=== PATIENT | female | born 1940 | race Caucasian/White ===

== ENCOUNTER 2018-09-03 10:47 | Emergency (ER) | payer MEDICARE ==
[2018-09-03] MEDS ORDERED: NS 0.9% 1000 ML** 1,000 ML IV ONE (11:18)
--- NOTE | 2018-09-03 11:30 | ED ---
Altered Mental Status - HPI Summary HPI Summary: Patient is a 77 y/o female with significant cancer hx including left breast and cervical cancer, presenting with worsening confusion for months. She experienced a fall this morning when attempting to sit on the commode and was brought in to the ED via EMS. Per , patient falls 3-4 times per week, which suddenly started 4 weeks ago. Patient has an MRI scheduled for 09/07/2018 to r/o tumor ordered by her PCP. She denies headache, dizziness, injury from fall, chest pain, shortness of breath, abdominal pain, nausea, vomiting, diarrhea, weakness and numbness of extremities. She denies feeling confused but her confirms she has been altered. She is accompanied by her and daughter who provide the majority of the history. They deny starting new medications in the last month. She has fentanyl patches prescribed by pain management for spinal stenosis and b/l chronic knee pain. Per , they change the fentanyl patches q 3 days as prescribed. Denies tobacco, alcohol, and drug use. - History Of Current Complaint Chief Complaint: EDAltMentalStatus Stated Complaint: AMS Time Seen by Provider: 09/03/18 10:56 Hx Obtained From: Patient, Family/Rehabilitation Counsellor - and daughter Hx From Patient Unobtainable Due To: Altered Mental Status Onset/Duration: Gradually Timing: Constant Severity Initially: Mild Severity Currently: Mild Character: Confusion Aggravating Factor(s): Nothing Alleviating Factor(s): Nothing Associated Signs And Symptoms: Negative: Dizziness, Seizure, Nausea, Vomiting, Fever, Headache, Weakness - Allergies/Home Medications Allergies/Adverse Reactions: Allergies Allergy/AdvReac Type Severity Reaction Status Date / Time buprenorphine [From Butrans] Allergy Hives Verified 08/25/18 13:23 latex Allergy Hives Verified 08/25/18 13:23 hydrocodone AdvReac Itching Verified 08/25/18 13:23 oxycodone AdvReac Hives Verified 08/25/18 13:23 tramadol AdvReac Headache Verified 08/25/18 13:23 NUTS Allergy ANAPHILAXIS Uncoded 08/25/18 13:23 Home Medications: Home Medications Anastrozole (NF) [Arimidex (NF)] 1 mg PO DAILY 09/03/18 [History Confirmed 09/03] Betamethasone Dipropionate [Betamethasone Dipropionat] 0.05 % TOPICAL TID PRN [History Confirmed 09/03/18] Cholecalciferol (Vitamin D3) [Vitamin D3] 2,000 unit PO DAILY 09/03/18 [History Confirmed 09/03/18] Esomeprazole(NF) [NexIUM(NF)] 40 mg PO DAILY 09/03/18 [History Confirmed ] Ibuprofen TAB* [Motrin TAB* 800 MG] 800 mg PO TID WITH MEALS PRN 09/03/18 [ History Confirmed 09/03/18] LevoCETirizine TAB (NF) [Xyzal TAB (NF)] 5 mg PO DAILY 09/03/18 [History Confirmed 09/03/18] Nystatin CREAM* [Nystatin Cream*] 1 applic TOPICAL TID PRN 09/03/18 [History Confirmed 09/03/18] Venlafaxine ER (NF) [Effexor ER (NF)] 150 mg PO DAILY 09/03/18 [History Confirmed 09/03/18] Venlafaxine EXT RELEASE CAP* [Effexor Xr CAP*] 75 mg PO DAILY 09/03/18 [History Confirmed 09/03/18] PMH/Surg Hx/FS Hx/Imm Hx Previously Healthy: No Endocrine/Hematology History: Denies: Hx Diabetes Cardiovascular History: Denies: Hx Hypertension, Hx Pacemaker/ICD, Other Cardiovascular Problems/ Disorders Respiratory History: Reports: Hx Asthma - ONLY WHEN SEASONAL BRONCHITIS, Hx Seasonal Allergies Denies: Other Respiratory Problems/Disorders GI History: Denies: Other GI Disorders History: Denies: Hx Dialysis, Hx Renal Disease Musculoskeletal History: Reports: Hx Arthritis - KNEES, BACK, Hx Back Problems - Spinal stenosis Denies: Hx Osteoporosis Sensory History: Reports: Hx Cataracts - FRED, Hx Contacts or Glasses - GLASSES Denies: Hx Hearing Aid Opthamlomology History: Reports: Hx Cataracts - FRED, Hx Contacts or Glasses - GLASSES Neurological History: Reports: Hx Migraine - Q 2 MONTHS Denies: Other Neuro Impairments/Disorders Psychiatric History: Reports: Hx Anxiety - ON MEDS, Hx Depression - ON MEDS Denies: Hx Panic Disorder - Cancer History Cancer Type, Location and Year: EYELID, LT BREAST, CERVIX Hx Chemotherapy: No Hx Radiation Therapy: Yes - THERAPY OVER - Surgical History Surgical History: Yes Surgery Procedure, Year, and Place: CATARACTS,BOTH,2005-LEFT HAND SURGERY. SHOULDER LEFT. CANCER LEFT EYELID, NO TEAR DUCT NOW. 12/19/14 LEFT BREAST CANCER TUMOR REMOVED. TUBAL LIGATION Hx Anesthesia Reactions: No Infectious Disease History: No Infectious Disease History: Denies: Hx Clostridium Difficile, Hx Hepatitis, Hx Human Immunodeficiency Virus (HIV), Hx of Known/Suspected MRSA, Hx Shingles, Hx Tuberculosis, Hx Known/ Suspected VRE, Hx Known/Suspected VRSA, History Other Infectious Disease, Traveled Outside the [place] in Last 30 Days - Family History Known Family History: Positive: None, Non-Contributory - Social History Occupation: Retired Lives: With Family Alcohol Use: None Alcohol Amount: HOLIDAYS Hx Substance Use: No Substance Use Type: Reports: None Hx Tobacco Use: Yes Smoking Status (MU): Former Smoker Type: Cigarettes Amount Used/How Often: PACK A DAY Have You Smoked in the Last Year: No Review of Systems Negative: Fever, Chills Negative: Blurred Vision Negative: Chest Pain Negative: Shortness Of Breath Negative: Abdominal Pain, Vomiting, Diarrhea, Nausea Negative: dysuria Neurological: Other - Fall. Altered mental status. Negative: Headache, Weakness, Numbness, Syncope All Other Systems Reviewed And Are Negative: Yes Physical Exam Triage Information Reviewed: Yes Vital Signs On Initial Exam: Initial Vitals Temp Pulse Resp BP Pulse Ox 98.2 F 100 15 149/99 94 09/03/18 10:53 09/03/18 10:53 09/03/18 10:53 09/03/18 10:53 09/03/18 10:53 Vital Signs Reviewed: Yes Appearance: Positive: Well-Appearing, No Pain Distress Skin: Positive: Warm, Skin Color Reflects Adequate Perfusion, Dry, Other - Well- demarcated erythematous rash to b/l groin lying beneath pannis, c/w fungal infection. Head/Face: Positive: Normal Head/Face Inspection, Other - No crepitus, no bony stepoffs.. Negative: Cephalohematoma Eyes: Positive: Normal, EOMI, Conjunctiva Clear Neck: Positive: Supple, Nontender Respiratory/Lung Sounds: Positive: Clear to Auscultation, Breath Sounds Present. Negative: Rales, Rhonchi, Wheezes Cardiovascular: Positive: RRR. Negative: Murmur, Rub Abdomen Description: Positive: Nontender, Soft. Negative: Distended Bowel Sounds: Positive: Present Musculoskeletal: Positive: Normal, Strength/ROM Intact, Other - Discrete 3 cm x 3 cm area of swelling to right biceps. No erythema, ecchymosis. No tenderness to palpation. ROM intact. Neurological: Positive: Normal, Sensory/Motor Intact, NV Bundle Intact Distally , Disoriented - Oriented to person. Not oriented to place or time., Facial Symmetry, Speech Normal. Negative: Focal Deficit @ Psychiatric: Positive: Normal Diagnostics - Vital Signs Vital Signs Temp Pulse Resp BP Pulse Ox 09/03/18 11:00 95 21 95 09/03/18 10:57 88 20 149/99 95 09/03/18 10:56 89 14 95 09/03/18 10:53 98.2 F 100 15 149/99 94 - Laboratory Lab Results: Laboratory Results - last 24 hr 09/03/18 09/03/18 09/03/18 11:41 11:41 11:41 WBC 8.2 RBC 4.34 Hgb 13.8 Hct 40 MCV 93 MCH 32 H MCHC 34 RDW 15 Plt Count 211 MPV 9.5 Neut % (Auto) 78.7 Lymph % (Auto) 10.0 [place] % (Auto) 9.3 Eos % (Auto) 1.2 Baso % (Auto) 0.8 Absolute Neuts (auto) 6.5 Absolute Lymphs (auto) 0.8 L Absolute Monos (auto) 0.8 Absolute Eos (auto) 0.1 Absolute Basos (auto) 0.1 Absolute Nucleated RBC 0.0 Nucleated RBC % 0.0 Sodium 139 Potassium 3.7 Chloride 105 Carbon Dioxide 22 Anion Gap 12 H BUN 20 Creatinine 0.79 Est GFR ( Amer) 85.2 Est GFR (Non-Af Amer) 70.4 BUN/Creatinine Ratio 25.3 H Glucose 112 H Lactic Acid 1.4 Calcium 9.2 Total Bilirubin 0.60 AST 12 L ALT 10 Alkaline Phosphatase 138 H Troponin I 0.00 Total Protein 7.0 Albumin 3.8 Globulin 3.2 Albumin/Globulin Ratio 1.2 Result Diagrams: 09/03/18 11:41 09/03/18 11:41 Lab Statement: Any lab studies that have been ordered have been reviewed, and results considered in the medical decision making process. - CT CT brain CT Interpretation Completed By: Radiologist Summary of CT Findings: No acute intracranial pathology - EKG Time 10:56 Cardiac Rate: NL - Rate 98 EKG Rhythm: Sinus Rhythm ST Segment: Normal Ectopy: None Summary of EKG Findings: Normal axis. Altered Mental Statu Course/Dx - Course Course Of Treatment: 77 y/o female with gradual onset AMS and falls recently. CT brain negative for acute intracranial pathology. Blood work WNL and U/A without signs of infection. Discussed at-home safety with patient and , both agree patient should be discharged to home and will have appropriate care. Pt discharged to home to f/u with MRI as scheduled on 09/07/18 and see PCP within 1 week. Recommend pursuing medication regimen as culprit of recent falls. - Diagnoses Differential Diagnosis/HQI/PQRI: Intracranial Bleed, Medication Reaction Provider Diagnoses: Altered mental status, unspecified Discharge - Sign-Out/Discharge Documenting (check all that apply): Patient Departure Patient Received Moderate/Deep Sedation with Procedure: No - Discharge Plan Condition: Improved Disposition: HOME Referrals: Jenni Singleton MD [Primary Care Provider] - - Billing Disposition and Condition Condition: IMPROVED Disposition: Home - Attestation Statements Document Initiated by Jigneshibnolan: Yes Documenting Scribe: MINNIE Diaz Provider For Whom Jigneshibnolan is Documenting (Include Credential): Dr. Waylon Eganibnolan Attestation: Robe, MINNIE Diaz, scribed for Dr. Connors on 09/03/18 at 1418. Status of Scribe Document: Viewed
[2018-09-03 11:53] LABS: ABS Basophils 0.1 10^3/ul (0-0.2); ABS Eosinophils 0.1 10^3/ul (0-0.6); ABS Lymphocytes 0.8 10^3/ul (1.0-4.8); ABS Monocytes 0.8 10^3/ul (0-0.8); ABS Neutrophils 6.5 10^3/ul (1.5-7.7); Eosinophil % 1.2 %; Hematocrit 40 % (35-47); Hemoglobin 13.8 g/dL (12.0-16.0); Mean Corpuscular HGB Conc 34 g/dL (31-36); Mean Corpuscular Hemoglobin 32 pg (27-31); Mean Corpuscular Volume 93 fL (80-97); Mean Platelet Volume 9.5 fL (7.4-10.4); Platelet Count 211 10^3/uL (150-450); Red Blood Count 4.34 10^6 /uL (3.70-4.87); Red Cell Distribution Width 15 % (10-15); White Blood Count 8.2 10^3/uL (3.5-10.8)
[2018-09-03 12:09] LABS: Albumin 3.8 g/dL (3.2-5.2); Albumin/Globulin Ratio 1.2 (1-3); BUN/Creatinine Ratio 25.3 (8-20); Calcium 9.2 mg/dL (8.6-10.3); EGFR African American 85.2 (>60); EGFR Non-African American 70.4 (>60); Globulin 3.2 g/dL (2-4); Potassium 3.7 mmol/L (3.5-5.0); Total Bilirubin 0.6 mg/dL (0.2-1.0)
[2018-09-03 14:00] LABS: Urine Appearance Clear; Urine Bacteria Absent (Absent); Urine Bilirubin Negative (Negative); Urine Blood Negative (Negative); Urine Color Yellow; Urine Glucose Negative (Negative); Urine Ketones 1+ (Negative); Urine Nitrite Negative (Negative); Urine Protein 1+(30 mg/dL) (Negative); Urine Red Blood Cell Trace(0-2/hpf) (Absent); Urine Specific Gravity 1.019 (1.010-1.030); Urine Squamous Epithelial Cell Present (Absent); Urine Urobilinogen Negative (Negative); Urine White Blood Cell Trace(0-5/hpf) (Absent)
[2018-09-03 14:40] VITALS: BP 159/77
== END 2018-09-03 14:39 | disposition home or self-care (01) ==
LOC: ED 10:47
DX: R41.82 Altered mental status, unspecified (principal); Z87.891 Personal history of nicotine dependence; Z79.899 Other long term (current) drug therapy
CPT/HCPCS: 36415; 70450; 80053; 81003; 81015; 83605; 84484; 85025; 87086; 93005; 96360; 96361; 99284

== ENCOUNTER 2018-10-02 08:18 | Observation (INO) | payer MEDICARE ==
--- NOTE | 2018-10-02 08:51 | ED ---
Upper Extremity Pain - HPI Summary HPI Summary: Pt is a 77 y/o F presenting to the ED brought in by EMS for L hand weakness. She states she woke up around 0630 with some L hand numbness, and was concerned that she may have been having a stroke. Per the pts family, she has been confused over the last couple of months with her changes in medication, and has not been speaking correctly. They are concerned about the medications she is on. - History of Current Complaint Chief Complaint: EDNeurologicalDeficit Stated Complaint: POSSIBLE STROKE PER EMS Time Seen by Provider: 10/02/18 08:29 Hx Obtained From: Patient, Family/Teacher Aide Mechanism Of Injury: Unknown Onset/Duration: Started Hours Ago, Still Present Timing: Constant, Lasting Hours Severity Initially: Mild Severity Currently: Mild Pain Location: Hand - L Aggravating Factor(s): Nothing Alleviating Factor(s): Nothing Associated Signs & Symptoms: Positive: Numbness/Tingling - Allergies/Home Medications Allergies/Adverse Reactions: Allergies Allergy/AdvReac Type Severity Reaction Status Date / Time nut - unspecified Allergy Severe Anaphylatic Verified 10/02/18 16:13 Shock buprenorphine [From Butrans] Allergy Hives Verified 10/02/18 08:26 latex Allergy Hives Verified 10/02/18 08:26 hydrocodone AdvReac Itching Verified 10/02/18 08:26 oxycodone AdvReac Hives Verified 10/02/18 08:26 tramadol AdvReac Headache Verified 10/02/18 08:26 NUTS Allergy ANAPHILAXIS Uncoded 10/02/18 08:26 Home Medications: Home Medications Solifenacin(NF) [Vesicare(NF)] 10 mg PO DAILY 10/02/18 [History Confirmed ] PMH/Surg Hx/FS Hx/Imm Hx Previously Healthy: Yes Endocrine/Hematology History: Denies: Hx Diabetes Cardiovascular History: Denies: Hx Hypertension, Hx Pacemaker/ICD, Other Cardiovascular Problems/ Disorders Respiratory History: Reports: Hx Asthma - ONLY WHEN SEASONAL BRONCHITIS, Hx Seasonal Allergies Denies: Other Respiratory Problems/Disorders GI History: Denies: Other GI Disorders History: Denies: Hx Dialysis, Hx Renal Disease Musculoskeletal History: Reports: Hx Arthritis - KNEES, BACK, Hx Back Problems - Spinal stenosis Denies: Hx Osteoporosis Sensory History: Reports: Hx Cataracts - FRED, Hx Contacts or Glasses - GLASSES Denies: Hx Hearing Aid Opthamlomology History: Reports: Hx Cataracts - FRED, Hx Contacts or Glasses - GLASSES Neurological History: Reports: Hx Migraine - Q 2 MONTHS Denies: Other Neuro Impairments/Disorders Psychiatric History: Reports: Hx Anxiety - ON MEDS, Hx Depression - ON MEDS Denies: Hx Panic Disorder - Cancer History Cancer Type, Location and Year: EYELID, LT BREAST, CERVIX Hx Chemotherapy: No Hx Radiation Therapy: Yes - THERAPY OVER - Surgical History Surgery Procedure, Year, and Place: CATARACTS,BOTH,2005-LEFT HAND SURGERY. SHOULDER LEFT. CANCER LEFT EYELID, NO TEAR DUCT NOW. 12/19/14 LEFT BREAST CANCER TUMOR REMOVED. TUBAL LIGATION Hx Anesthesia Reactions: No Infectious Disease History: No Infectious Disease History: Denies: Hx Clostridium Difficile, Hx Hepatitis, Hx Human Immunodeficiency Virus (HIV), Hx of Known/Suspected MRSA, Hx Shingles, Hx Tuberculosis, Hx Known/ Suspected VRE, Hx Known/Suspected VRSA, History Other Infectious Disease, Traveled Outside the [place] in Last 30 Days - Family History Known Family History: Negative: Cardiac Disease - Social History Alcohol Use: None Alcohol Amount: HOLIDAYS Hx Substance Use: No Substance Use Type: Reports: None Hx Tobacco Use: Yes Smoking Status (MU): Former Smoker Type: Cigarettes Amount Used/How Often: PACK A DAY Have You Smoked in the Last Year: No Review of Systems Positive: Other - confusion Positive: Numbness, Slurred Speech All Other Systems Reviewed And Are Negative: Yes Physical Exam - Summary Physical Exam Summary: Appearance: The patient is well-nourished in no acute distress and in no acute pain. Skin: The skin is warm and dry and skin color reflects adequate perfusion. HEENT: The head is normocephalic and atraumatic. The pupils are equal and reactive. The conjunctivae are clear and without drainage. Nares are patent and without drainage. Mouth reveals moist mucous membranes and the throat is without erythema and exudate. The external ears are intact. The ear canals are patent and without drainage. The tympanic membranes are intact. Neck: The neck is supple with full range of motion and non-tender. There are no carotid bruits. There is no neck vein distension. Respiratory: Chest is non-tender. Lungs are clear to auscultation and breath sounds are symmetrical and equal. Cardiovascular: Heart is regular rate and rhythm. There is no murmur or rub auscultated. There is no peripheral edema and pulses are symmetrical and equal. Abdomen: The abdomen is soft and non-tender. There are normal bowel sounds heard in all four quadrants and there is no organomegaly palpated. Musculoskeletal: There is no back tenderness noted. Extremities are non-tender with full range of motion. There is good capillary refill. There is no peripheral edema or calf tenderness elicited. Neurological: Patient is alert and confused. The patient has symmetrical motor strength in all four extremities. Cranial nerves are grossly intact. Deep tendon reflexes are symmetrical and equal in all four extremities. She has some decreased leg touch vs. pinprick in her L hand. Psychiatric: The patient has an appropriate affect and does not exhibit any anxiety or depression. Triage Information Reviewed: Yes Vital Signs On Initial Exam: Initial Vitals Temp Pulse Resp BP Pulse Ox 98.2 F 105 17 146/79 94 10/02/18 08:21 10/02/18 08:21 10/02/18 08:21 10/02/18 08:21 10/02/18 08:21 Vital Signs Reviewed: Yes - Dennis Coma Scale Best Eye Response: 4 - Spontaneous Best Motor Response: 6 - Obeys Commands Best Verbal Response: 5 - Oriented Coma Scale Total: 15 Diagnostics - Vital Signs Vital Signs Temp Pulse Resp BP Pulse Ox 10/02/18 08:21 98.2 F 105 17 146/79 94 - Laboratory Result Diagrams: 10/02/18 08:58 10/02/18 08:58 Lab Statement: Any lab studies that have been ordered have been reviewed, and results considered in the medical decision making process. - CT Brain CT CT Interpretation Completed By: Radiologist Summary of CT Findings: No acute intracranial process evident. ED physician has reviewed this report. Head CTA CT Interpretation Completed By: Radiologist Summary of CT Findings: Negative for central intracranial large vessel arterial occlusion or stenosis. ED physician has reviewed this report. - EKG 0910 Cardiac Rate: NL - 94bpm EKG Rhythm: Sinus Rhythm ST Segment: Normal Ectopy: None Summary of EKG Findings: EKG at 0910 shows NSR at 94bpm with probable old inferior infarct, nml ST, no ectopy, and no STEMI. National Institutes Of Health - NIH Scale Level of Consciousness: Alert/Keenly Responsive Ask Patient the Month and His/Her Age: Both Correct Ask Pt to Open/Close Eyes and Auto Carrier Driver/Release Non-Paretic Hand: Both Correctly Best Gaze (Only Horizontal Eye Movement): Normal Visual Field Testing: No Visual Loss Facial Paresis-Pt to Smile & Close Eyes or Grimace Symmetry: Normal/Symmetrical Motor Function - Right Arm: No Drift-Holds 10 Seconds Motor Function - Left Arm: No Drift-Holds 10 Seconds Motor Function - Right Leg: No Drift-Holds 10 Seconds Motor Function - Left Leg: No Drift-Holds 10 Seconds Limb Ataxia-Must be out of Proportion to Weakness Present: Absent Sensory (Use Pinprick to Test Arms/Legs/Trunk/Face): Normal Best Language (Describe Picture, Name Items): No Aphasia Dysarthria (Read Several Words): Normal Extinction and Inattention: No Abnormality Total Score: 0 Course/Dx - Course Course Of Treatment: Ms. Ovalle was exceedingly difficult to evaluate secondary to confusion. She is apparently been confused for at least 3 weeks according to the family. She had an MRI of the brain as part of the workup for her confusion 4 weeks ago. She woke up this morning and began to complain about her left hand. It is difficult for me to determine exactly what was concerning to her about her hand but she was clear that it still existed. She was very consistent with the hand complaint to her family, to the nurses and to myself. At one point she agreed that it was numbness but this was inconsistent. I performed a complete NIH stroke scale and this was 0. She had some inconsistencies when examining light touch versus pinprick and 2. discrimination in her left hand however this seemed more a problem with her confusion and understanding what I needed. Given that she woke up with the symptoms and her NIH stroke scale was 0 I do not feel that she was a thrombolytic candidate and did not call us code pink. I did get a CT scan and labs which are unremarkable. I ordered a CTA although again with a normal NIH stroke scale, I doubt that there is a retrievable clot. I spoke with Dr. Carvalho for neurology who recommended consultation with strong stroke. He agreed that thrombolytics were not indicated or transfer for clot retrieval. I spoke with Dr. aCrvalho who requested admission for further workup for TIA. I spoke with Dr. Gilmore who agreed to see the patient. - Diagnoses Provider Diagnoses: TIA (transient ischemic attack) - Physician Notifications Discussed Care of Patient With: Patricia Gilmore - Time Discussed With Above Provider: 15:00 Instructed by Provider To: Admit As Inpatient Discharge - Sign-Out/Discharge Documenting (check all that apply): Patient Departure - Discharge Plan Condition: Stable Disposition: ADMITTED TO [facility] Referrals: Jenni Singleton MD [Primary Care Provider] - - Billing Disposition and Condition Condition: STABLE Disposition: Admitted to [facility] - Attestation Statements Document Initiated by Scribe: Yes Documenting Scribe: Nahed Pro Provider For Whom Scribe is Documenting (Include Credential): Beck Godinez MD. Scribe Attestation: I, Nahed Pro, scribed for Beck Godinez MD. on 10/02/18 at 1608. Scribe Documentation Reviewed: Yes Provider Attestation: The documentation as recorded by the scribe, Nahed Pro accurately reflects the service I personally performed and the decisions made by me, Beck Godinez MD. Status of Scribe Document: Viewed Consult Consult: I spoke with Dr. Gilmore at 1430 about the pt who recommended speaking with Dr. Carvalho. Dr. Carvalho recommended admission if the pt feels that it is necessary. Dr. Gilmore accepts for admission at 1500.
[2018-10-02 09:18] LABS: ABS Basophils 0.1 10^3/ul (0-0.2); ABS Eosinophils 0.2 10^3/ul (0-0.6); ABS Lymphocytes 1.2 10^3/ul (1.0-4.8); ABS Monocytes 0.5 10^3/ul (0-0.8); ABS Neutrophils 4.5 10^3/ul (1.5-7.7); Hematocrit 44 % (35-47); Hemoglobin 14.9 g/dL (12.0-16.0); Lymphocyte % 18.2 %; Mean Corpuscular HGB Conc 34 g/dL (31-36); Mean Corpuscular Hemoglobin 32 pg (27-31); Mean Corpuscular Volume 95 fL (80-97); Mean Platelet Volume 9.8 fL (7.4-10.4); Platelet Count 204 10^3/uL (150-450); Red Blood Count 4.62 10^6 /uL (3.70-4.87); Red Cell Distribution Width 14 % (10-15); White Blood Count 6.3 10^3/uL (3.5-10.8)
[2018-10-02 09:28] LABS: Albumin 3.8 g/dL (3.2-5.2); Albumin/Globulin Ratio 1.2 (1-3); BUN/Creatinine Ratio 22.9 (8-20); Calcium 9.6 mg/dL (8.6-10.3); EGFR African American 80.4 (>60); EGFR Non-African American 66.5 (>60); Globulin 3.2 g/dL (2-4); Total Bilirubin 0.4 mg/dL (0.2-1.0)
[2018-10-02] MEDS ORDERED: Iohexol 350* (CONTRAST) 500 ML MDV IV ONE (12:36)
[2018-10-02] MEDS ORDERED: NS 0.9% 1000 ML** 1,000 ML IV ONE (13:39)
[2018-10-02] MEDS ORDERED: Magnesium Hydroxide LIQ* 30 ML UDC PO PRN (15:54)
[2018-10-02] MEDS ORDERED: Acetaminophen TAB* 325 MG PO PRN (15:54)
[2018-10-02] MEDS ORDERED: clonazePAM TAB(*) 1 MG PO PRN (16:00)
[2018-10-02] MEDS ORDERED: Nystatin CREAM* 30 GM TOPICAL PRN (16:00)
[2018-10-02] MEDS ORDERED: traZODone TAB* 50 MG TAB PO PRN (16:00)
[2018-10-02] MEDS ORDERED: Ibuprofen TAB* 800 MG PO PRN (16:00)
[2018-10-02] MEDS ORDERED: oxyCODONE TAB* 5 MG TAB PO PRN (16:02)
[2018-10-02] MEDS ORDERED: diPHENhydraMINE LIQ* 12.5 MG/5 ML UDC PO PRN (16:03)
[2018-10-02] MEDS: Aspirin 81 mg CHEW TAB* 81 MG TAB.CHEW PO SCH (17:32)
[2018-10-02] MEDS: Clopidogrel TAB* 75 MG PO SCH (17:32)
--- NOTE | 2018-10-02 19:02 | HP ---
CC: Dr. Jenni Singleton; Dr. Miguel; Dr. Carvalho; Dr. Bryant; Dr. Burger * HISTORY AND PHYSICAL: DATE OF ADMISSION: 10/02/18 PRIMARY CARE PROVIDER: Dr. Jenni Singleton. CHIEF COMPLAINT: Left arm tingling. HISTORY OF PRESENT ILLNESS: Alayna Ovalle is a 77-year-old female with history of chronic pain for which she sees Dr. Burger. Approximately 4 months ago, she was started on fentanyl due to her allergies to multiple narcotics and usually is basically just skin itching for which she takes Benadryl and it goes away. After she started taking fentanyl, she felt that her pain was may be under better control, but she also noticed that she is less mobile, more shaky and more confused. Family reports that the patient has been hallucinating both auditory and visual hallucinations. She also had been becoming more forgetful and since she has had issues with ambulation and feeling more shaky, she has become increasingly weaker. She ambulates with a rolling walker and she has had multiple falls. Today in the morning, she was trying to get a glass of water from the bedside and she spilled it. She also felt that her left hand was tingling. The patient herself contributed to the information given very poorly, but there is a daughter and by the bedside. Currently, the tingling of the left hand resolved and the patient is unable to provide me the information of how long it lasted. The patient was presented to the ED as an acute stroke and initially she was evaluated by Teleneurology from [place] and her stroke scale was 0 at that point. Subsequently, the ED provider discussed the case with Dr. Carvalho who recommended admission. The patient is going to be placed on full admission since she requires an MRI of the brain and that cannot be done until Thursday. PAST MEDICAL HISTORY: 1. History of gastroesophageal reflux disease. 2. 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 3. Anxiety. 4. History of breast cancer in 2015, status post radiation, on Arimidex. 5. History of chronic back pain and bilateral knee osteoarthritic pain. ALLERGIES: Multiple and include BUPRENORPHINE, LATEX, HYDROCODONE, OXYCODONE, TRAMADOL, and nuts. The patient stated that her allergy to OXYCODONE is itching and she had been taking it in the past with the help of Benadryl. She agrees to take oxycodone at this time. FAMILY HISTORY: Positive for sister with heart disease. Father with history of diabetes. SOCIAL HISTORY: The patient ambulates with a rolling walker. She lives with her who is her primary health care marketing manager. She denies any tobacco, alcohol, or drug use. She is retired. REVIEW OF SYSTEMS: Please see history of present illness. In addition to the above mentioned, the patient stated that she has lost 15 pounds of weight for the past 4 months due to poor appetite. She has become increasingly debilitated and "shaky." She has decreased strength overall. Her noted that occasionally her speech would get slurred as if she is tired when talking and it is difficult to understand. The patient also complained of hallucination as mentioned above. All the remaining 12-systems reviewed with the patient and were otherwise negative. PHYSICAL EXAMINATION GENERAL: The patient is a pleasant 77-year-old female who is in no acute distress. The patient is alert and oriented x2. She is able to recall the date somewhat, but it comes with difficulty. VITAL SIGNS: Blood pressure of 131/76, heart rate of 88 and regular, respiratory rate 22, oxygen saturation 93% on room air, temperature of 99.3. HEENT: Head: Atraumatic, normocephalic. Eyes: Pupils are equal, reactive to light and accommodation. Oropharynx clear. Mucosa moist. NECK: Supple. No JVD. No bruits bilaterally. RESPIRATORY: Clear to auscultation bilaterally. CARDIOVASCULAR: Regular rate and rhythm. No murmur. ABDOMEN: Soft, nontender. Bowel sounds are present in all 4 quadrants. EXTREMITIES: There is trace bilateral pedal edema. Pulses are +2 bilaterally. There is no clubbing or cyanosis. NEUROLOGIC: The patient has mild tremor in bilateral lower extremities that is intentional. Speech is clear. Cranial nerves II through XII grossly intact. Motor strength in left upper extremity, the patient appears to have very mild pronator drift. Otherwise, she has good bilaterally and no sensation deficit. Her [id number] on the left is also mildly more dysmetric than on the right. Gait was not assessed. SKIN: On evaluation of the skin, the patient has resolving ecchymotic area on the distal left arm and lower extremity of approximately 4 cm in diameter. DIAGNOSTIC STUDIES/LAB DATA: Laboratory data shows sodium of 138, potassium 4.0, chloride 106, carbon dioxide 22, BUN 13, creatinine 0.83. Liver function tests unremarkable. Alkaline phosphatase of 140, which is chronically elevated and today is slightly more than before. CBC: White blood cell count 6.3, hemoglobin of 14.9, hematocrit of 44, and platelets of 204. CT angiogram of the head and neck showed no significant abnormalities of the vascularity of the head, has 40% stenosis of left proximal internal carotid artery. 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 Comparing with an EKG from 09/03/18 those changes are chronic. ASSESSMENT AND PLAN: 1. Left arm tingling. It may be related to transient ischemic attack versus cerebrovascular accident. The patient has slightly more dysmetria on the left and mild pronator drift on the left. She had an MRI obtained on 09/07/18, which was unremarkable due to her history of confusion. At this point, the case was discussed with Dr. Carvalho who recommended admission. The patient is going to be placed on neuro checks. An echocardiogram with bubble study is going to be obtained. The patient will not placed on aspirin and Plavix until an MRI on Thursday rules in or out possibility of stroke. 2. Increasingly more confused, occasionally hallucinating with generalized weakness. The patient believes that the symptoms started when fentanyl started. She believes that her pain is well controlled on fentanyl, but unfortunately her quality of life definitely decreased since the fentanyl was started. We discussed the possibility of other narcotics. The patient stated that she is basically allergic to "all the narcotics" and they all caused her to itch. In the past, she has taken oxycodone with Benadryl and she is willing to restart it once her fentanyl is off. She also requested to be taken off fentanyl. I will discontinue the fentanyl, place the patient on oxycodone and Benadryl on a p.r.n. basis. Physical Therapy is going to evaluate the patient. 3. For history of breast cancer, Arimidex is going to be continued. 4. For history of anxiety, clonazepam is going to be continued. 5. The patient's code status is full. Surrogate is her . TIME SPENT: Approximately 72 minutes was spent on admission of this patient, more than half that time was spent [id number] with the patient during the interview and physical exam. [id number]/[facility] #: [id number] MTDD
[2018-10-02] MEDS: Docusate CAP* 100 MG PO SCH (21:18)
[2018-10-02] MEDS: Senna TAB PO SCH (21:18)
[2018-10-02] MEDS: Heparin VIAL(*) 5000 UNITS/ML VIAL (FIVE THOUSAND) SUBCUT SCH (21:18)
[2018-10-02 22:25] LABS: Urine Appearance Cloudy; Urine Bacteria Absent (Absent); Urine Bilirubin Negative (Negative); Urine Blood Negative (Negative); Urine Color Yellow; Urine Glucose Negative (Negative); Urine Ketones Negative (Negative); Urine Nitrite Negative (Negative); Urine Protein Negative (Negative); Urine Red Blood Cell Absent (Absent); Urine Specific Gravity > 1.060 (1.010-1.030); Urine Squamous Epithelial Cell Present (Absent); Urine Urobilinogen Positive (Negative); Urine White Blood Cell Trace(0-5/hpf) (Absent)
[2018-10-03] MEDS: Heparin VIAL(*) 5000 UNITS/ML VIAL (FIVE THOUSAND) SUBCUT SCH ×3 (05:51→21:57)
[2018-10-03 06:02] LABS: HDL Cholesterol 30.9 mg/dL
[2018-10-03] MEDS ORDERED: Venlafaxine ER (NF) 150 MG CAP.ER PO SCH (09:00)
[2018-10-03] MEDS: Venlafaxine EXT RELEASE CAP* 75 MG PO SCH (09:33)
[2018-10-03] MEDS: Pantoprazole TAB * 40 MG TAB PO SCH (09:36)
[2018-10-03] MEDS: Aspirin 81 mg CHEW TAB* 81 MG TAB.CHEW PO SCH (09:36)
[2018-10-03] MEDS: CMCS - Anastrozole (NF) 1 MG TAB PO SCH (09:36)
[2018-10-03] MEDS: Clopidogrel TAB* 75 MG PO SCH (09:36)
[2018-10-03] MEDS: Docusate CAP* 100 MG PO SCH ×2 (09:37→21:57)
[2018-10-03] MEDS: Senna TAB PO SCH ×2 (09:37→21:57)
--- NOTE | 2018-10-03 12:09 | PN ---
Subjective Date of Service: 10/03/18 Interval History: Pt feels "clearer" after Fentanyl discontinuation. Seen with by the bedside. Has no new complaint. L arm tingling has not recurred Objective Active Medications: Acetaminophen (Tylenol Tab*) 650 mg PO Q4H PRN PRN Reason: FEVER/PAIN Anastrozole (Arimidex (Nf)) 1 mg PO DAILY [facility] Last Admin: 10/03/18 09:36 Dose: 1 mg Aspirin (Aspirin 81 Mg Chew Tab*) 81 mg PO DAILY [facility] Last Admin: 10/03/18 09:36 Dose: 81 mg Atorvastatin Calcium (Lipitor*) 80 mg PO 1700 [facility] Clonazepam (Klonopin Tab(*)) 1 mg PO TID PRN PRN Reason: ANXIETY Clopidogrel Bisulfate (Plavix Tab*) 75 mg PO DAILY [facility] Last Admin: 10/03/18 09:36 Dose: 75 mg Diphenhydramine HCl (Benadryl Liq*) 25 mg PO Q6H PRN PRN Reason: ITCHING Docusate Sodium (Colace Cap*) 100 mg PO BID [facility] Last Admin: 10/03/18 09:37 Dose: Not Given Heparin Sodium (Porcine) (Heparin Vial(*)) 5,000 units SUBCUT Q8HR [facility] Last Admin: 10/03/18 05:51 Dose: 5,000 units Ibuprofen (Motrin Tab*) 800 mg PO TID WITH MEALS PRN PRN Reason: PAIN Magnesium Hydroxide (Milk Of Magnesia Liq*) 30 ml PO Q4H PRN PRN Reason: CONSTIPATION Nystatin (Nystatin Cream*) 1 applic TOPICAL TID PRN PRN Reason: . Oxycodone HCl (Roxycodone Tab*) 5 mg PO Q4H PRN PRN Reason: PAIN Pantoprazole Sodium (Protonix Tab*) 40 mg PO DAILY [facility] Last Admin: 10/03/18 09:36 Dose: 40 mg Senna (Senokot Tab*) 1 tab PO BID [facility] Last Admin: 10/03/18 09:37 Dose: Not Given Trazodone HCl (Desyrel Tab*) 50 mg PO BEDTIME PRN PRN Reason: SLEEP Venlafaxine HCl (Effexor Xr Cap*) 225 mg PO DAILY [facility] Last Admin: 10/03/18 09:33 Dose: 225 mg Vital Signs - 8 hr 10/03/18 10/03/18 08:00 08:30 Temperature 97.6 F Pulse Rate 86 Respiratory 20 20 Rate Blood Pressure 154/68 (mmHg) O2 Sat by Pulse 96 Oximetry Oxygen Devices in Use Now: None Appearance: 77 yo F in nAD, AAOx2, por historian Eyes: No Scleral Icterus, PERRLA Ears/Nose/Mouth/Throat: NL Teeth, Lips, Gums, Mucous Membranes Moist Neck: NL Appearance and Movements; NL JVP, Trachea Midline Respiratory: Symmetrical Chest Expansion and Respiratory Effort, Clear to Auscultation Cardiovascular: NL Sounds; No Murmurs; No JVD Abdominal: NL Sounds; No Tenderness; No Distention, No Hepatosplenomegaly Extremities: No Clubbing, Cyanosis, - - trace pedal eedma b/l Skin: No Rash or Ulcers, No Nodules or Sclerosis Neurological: NL Muscle Strength and Tone Result Diagrams: 10/02/18 08:58 10/02/18 08:58 Assess/Plan/Problems-Billing Assessment: 77 yo F with h/o chronic pain, breast cancer presented with L arm tingling and weakness H/o recent episodes of poor memory, confusion and hallucinations, as well as 15 lbs wt loss in 4 months since she was placed on Fentanyl - Patient Problems (1) Left arm weakness Comment: appears to have resolved Cont telem, planned TTE today and MRI tomorrow cont ASA/Plavix Awaiting DR. Carvalho's consult (2) Breast CA Comment: cont Arimidex (3) Anxiety Comment: controlled on home clonazepam (4) Chronic pain Comment: d/c'd Fentanyl at admission cont oxycodone prn(pt has pruritus secondary to oxycodone and requested Benadryl prn ) (5) Dyslipidemia Comment: LDL 146-Lipitor started (6) Falls frequently Comment: PT pending (7) DVT prophylaxis Comment: HSQ Status and Disposition: inpatient
[2018-10-03] MEDS ORDERED: Atorvastatin* 80 MG TAB PO SCH (17:00)
--- NOTE | 2018-10-03 20:02 | CONS ---
CONSULTATION REPORT: DATE OF CONSULT: 10/03/18 PATIENT OF: Dr. Gilmore, Dr. Singleton, Dr. Miguel, and Dr. Burger. HISTORY OF PRESENT ILLNESS: This is a 77-year-old woman who has chronic pain with some increased confusion with some fentanyl and having some hallucinations and with some generalized weakness and ambulating with a rolling walker. Yesterday morning, she woke and had tingling in her left hand and clumsiness of the left hand, these symptoms resolved. In the ER, her NIH stroke scale was 0 and she was admitted for further evaluation of TIA. 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 ALLERGIES: Include BUPRENORPHINE, LATEX, HYDROCODONE, OXYCODONE, TRAMADOL, and NUTS. FAMILY HISTORY: She has a sister with heart disease. Father with diabetes. SOCIAL HISTORY: She lives with her , who is her primary animal care taker. She does not smoke, drink or use drugs. REVIEW OF SYSTEMS: Significant for a 15-pound weight loss in the past 4 months due to poor appetite. Review of systems is otherwise negative. PHYSICAL EXAM: Temperature 97.7, pulse 86, respiratory rate 16, blood pressure 136/64. She is alert and oriented with normal speech and comprehension. Cranial nerves II through XII were normal. Discs are sharp. Motor exam revealed normal tone and strength. Coordination is normal. Sensation intact to light touch. Reflex is 1 and equal, downgoing toes. Chest: Clear. Cardiovascular: Regular rate and rhythm. Abdomen: Soft with positive bowel sounds. IMPRESSION AND PLAN: Since she has acute clumsiness in her left hand as well as tingling in her left hand, this most likely was a small stroke. She has been appropriate to begin on Lipitor for her elevated LDL and is on aspirin and Plavix on a daily basis. She will be getting a transthoracic echo tomorrow as well as an MRI scan and will decide on whether we need to do any further evaluation and treatment after that. Her CTA was negative for large vessel occlusion. Her CTA showed no acute findings. No further recommendation at this point. Thank you for sharing her case. [id number]/[facility] #: [id number] SUSY
[2018-10-04] MEDS: Heparin VIAL(*) 5000 UNITS/ML VIAL (FIVE THOUSAND) SUBCUT SCH ×2 (05:31→14:03)
[2018-10-04] MEDS: Venlafaxine EXT RELEASE CAP* 75 MG PO SCH (10:02)
[2018-10-04] MEDS: Clopidogrel TAB* 75 MG PO SCH (10:04)
[2018-10-04] MEDS: Pantoprazole TAB * 40 MG TAB PO SCH (10:04)
[2018-10-04] MEDS: Aspirin 81 mg CHEW TAB* 81 MG TAB.CHEW PO SCH (10:04)
[2018-10-04] MEDS: CMCS - Anastrozole (NF) 1 MG TAB PO SCH (10:04)
[2018-10-04] MEDS: Docusate CAP* 100 MG PO SCH (10:07)
[2018-10-04] MEDS: Senna TAB PO SCH (10:07)
[2018-10-04] MEDS ORDERED: Perflutren Lipid Microsphere* 3 ML VIAL ONE (11:03)
--- NOTE | 2018-10-04 12:42 | ECHO ---
*[facility]* [place] [address] Fax #: [phone] Transthoracic Echocardiogram Patient: Alayna Ovalle : 1940 Study Date: 10/04/2018 Age: 77 Gender: F HR: 95 bpm Height: 67 in /170.2 cm BSA: 1.79 m^2 Weight: 149.7 lb /68 kg BMI: 23.5 kg/m^2 *Events And Promotions Assistant: Jessica Daniels [facility] [place] *Referring Physician: * Patricia Gilmore *Reading Physician: Martha Ruiz MD Indications: TIA. History: Breast cancer, radiation. Conclusions Summary: 1. Left ventricle: The cavity size is mildly reduced. Wall thickness is moderately increased. Systolic function is normal. The estimated ejection fraction is 50-55%. 2. Atrial septum: A PFO is not demonstrated by color Doppler or agitated saline contrast. Bubble study appears negative but imaging is suboptimal. 3. No previous echocardiogram available. 4. No significant valvular disease. Study data: Transthoracic echocardiogram. Procedure: Transthoracic echocardiography was performed. Image quality was suboptimal. Intravenous Definity , 3 mlswas administered. A bubble study was performed. Complete 2D, spectral Doppler, and color flow Doppler. Location: Procedure room. Patient status: Inpatient. Patient room number: 448 02. Rhythm: Normal sinus rhythm. Findings Left ventricle: The cavity size is mildly reduced. Wall thickness is moderately increased. Systolic function is normal. The estimated ejection fraction is 50-55%. Regional wall motion abnormalities: The endocardium is not well visualized. Paradoxical septal wall motion abnormality. There is no consistent Doppler evidence of clinically significant diastolic dysfunction. Right ventricle: The cavity size is normal. Wall thickness is moderately increased. Systolic function is normal. Left atrium: The atrium is normal in size. Right atrium: The atrium is normal in size. Atrial septum: A PFO is not demonstrated by color Doppler or agitated saline contrast. Bubble study appears negative but imaging is suboptimal. Mitral valve: The annulus is mildly calcified. The leaflets are mildly thickened. There is no evidence of stenosis. There is no significant regurgitation. Aortic valve: The valve is probably trileaflet. The leaflets are mildly thickened. There is no evidence of stenosis. There is no significant regurgitation. Tricuspid valve: The leaflets are normal thickness. There is no evidence of stenosis. There is no significant regurgitation. Pulmonic valve: Not well visualized. There is no significant regurgitation. Aorta: Aortic root: The aortic root is appears normal. Ascending aorta: The ascending aorta is appears normal and calcified. Aortic arch: The aortic arch is appears normal and calcified. Pericardium: A prominent pericardial fat pad is present. There is no significant pericardial effusion. Pulmonary arteries: Not well visualized. Systolic pressure can not be accurately estimated. Systemic veins: Inferior vena cava: The vessel is normal in size. The respirophasic diameter changes are in the normal range (>= 50%). Measurements Left ventricle Value Ref Aortic valve Value Ref THEE, LAX (L) 2.8 cm 3.8 - 5.2 Anthony diam, ED 2.4 cm ---- ESD, LAX (L) 1.9 cm 2.2 - 3.5 Peak v, S 1.36 m/sec ---- FS, LAX 34 % 27 - 45 VTI, S 22.8 cm ---- PW, ED, LAX (H) 1.4 cm 0.6 - 0.9 Mean grad, S 4.0 mm Hg ---- EF 64 % 54 - 74 Peak grad, S 7.0 mm Hg ---- E', lat anthony, TDI (L) 6.9 cm/sec >=10.0 E/e', lat anthony, 10 Mitral valve Value Ref TDI Peak E 0.68 m/sec ---- E', med anthony, TDI (L) 5.0 cm/sec >=7.0 Peak A 1.16 m/sec ---- E/e', med anthony, 14 Decel time 40 ms ---- TDI PHT 71 ms ---- E', avg, TDI 6.0 cm/sec Mean grad, D 2.0 mm Hg ---- E/e', avg, TDI 11 <=14 Peak grad, D 5.0 mm Hg ---- Peak E/A ratio 0.6 ---- LVOT Value Ref MVA, PHT 3.1 cm^2 ---- Peak aman, S 0.94 m/sec Mean grad, S 2 mm Hg Pulmonic valve Value Ref Peak v, S 0.94 m/sec ---- Ventricular septum Value Ref Peak grad, S 4.0 mm Hg ---- IVS, ED (H) 1.7 cm 0.6 - 0.9 Aortic root Value Ref Right ventricle Value Ref Root diam 2.8 cm <4.0 THEE, LAX 1.9 cm Ascending aorta Value Ref Left atrium Value Ref AAo AP diam, S 3.5 cm ---- AP dim, ES 2.90 cm 2.70 - 3.80 Aortic arch Value Ref ML dim, A4C 3.9 cm Arch diam 2.6 cm ---- SI dim, A4C 5.4 cm Vol/bsa, ES, 1-p 31 ml/m^2 11 - 40 Decending aorta Value Ref A4C Vilma peak aman 0.58 m/sec ---- Right atrium Value Ref Inferior vena cava Value Ref SI dim, ES 5.0 cm 3.4 - 5.3 Diam 1.4 cm ---- ML dim, ES, A4C 3.6 cm 2.6 - 4.4 Estimated RAP 8 mm Hg Legend: (L) and (H) samuel values outside specified reference range. Prepared and electronically signed by Martha Kunz MD 10/04/2018 12:41
[2018-10-04] MEDS ORDERED: NS 0.9% 1000 ML** 1,000 ML IV ONE (14:14)
--- NOTE | 2018-10-04 14:19 | PN ---
Subjective Date of Service: 10/04/18 Interval History: Nursing reports the patient was hallucinating this morning; she called the lab from the hospital phone and told someone she was being held in a detention cell. At time of evaluation, patient denies this and says she did not speak to anyone besides her sister and . She denies abd pain, fever/chills, chest pain, difficulty breathing, numbness/tingling, visual changes. She asks to be discharged and becomes tearful. Objective Active Medications: Acetaminophen (Tylenol Tab*) 650 mg PO Q4H PRN PRN Reason: FEVER/PAIN Anastrozole (Arimidex (Nf)) 1 mg PO DAILY [facility] Last Admin: 10/04/18 10:04 Dose: 1 mg Aspirin (Aspirin 81 Mg Chew Tab*) 81 mg PO DAILY [facility] Last Admin: 10/04/18 10:04 Dose: 81 mg Atorvastatin Calcium (Lipitor*) 80 mg PO 1700 [facility] Last Admin: 10/03/18 17:04 Dose: 80 mg Clonazepam (Klonopin Tab(*)) 1 mg PO TID PRN PRN Reason: ANXIETY Clopidogrel Bisulfate (Plavix Tab*) 75 mg PO DAILY [facility] Last Admin: 10/04/18 10:04 Dose: 75 mg Diphenhydramine HCl (Benadryl Liq*) 25 mg PO Q6H PRN PRN Reason: ITCHING Docusate Sodium (Colace Cap*) 100 mg PO BID [facility] Last Admin: 10/04/18 10:07 Dose: Not Given Heparin Sodium (Porcine) (Heparin Vial(*)) 5,000 units SUBCUT Q8HR [facility] Last Admin: 10/04/18 14:03 Dose: 5,000 units Sodium Chloride (Ns 0.9% 1000 Ml) 1,000 mls @ 100 mls/hr IV .PER RATE ONE Stop: 10/05/18 00:13 Ibuprofen (Motrin Tab*) 800 mg PO TID WITH MEALS PRN PRN Reason: PAIN Magnesium Hydroxide (Milk Of Magnesia Liq*) 30 ml PO Q4H PRN PRN Reason: CONSTIPATION Nystatin (Nystatin Cream*) 1 applic TOPICAL TID PRN PRN Reason: . Oxycodone HCl (Roxycodone Tab*) 5 mg PO Q4H PRN PRN Reason: PAIN Pantoprazole Sodium (Protonix Tab*) 40 mg PO DAILY [facility] Last Admin: 10/04/18 10:04 Dose: 40 mg Senna (Senokot Tab*) 1 tab PO BID [facility] Last Admin: 10/04/18 10:07 Dose: Not Given Trazodone HCl (Desyrel Tab*) 50 mg PO BEDTIME PRN PRN Reason: SLEEP Venlafaxine HCl (Effexor Xr Cap*) 225 mg PO DAILY [facility] Last Admin: 10/04/18 10:02 Dose: 225 mg Vital Signs - 8 hr 10/04/18 08:00 Temperature 97.6 F Pulse Rate 87 Respiratory 16 Rate Blood Pressure 162/87 (mmHg) O2 Sat by Pulse 97 Oximetry Oxygen Devices in Use Now: None Appearance: Overweight elderly white female laying in hospital bed appearing in NAD Eyes: No Scleral Icterus, PERRLA, - - no nystagmus; visual lanier full to confrontation Ears/Nose/Mouth/Throat: Mucous Membranes Moist Neck: NL Appearance and Movements; NL JVP Respiratory: Symmetrical Chest Expansion and Respiratory Effort, Clear to Auscultation Cardiovascular: NL Sounds; No Murmurs; No JVD, RRR Abdominal: NL Sounds; No Tenderness; No Distention Extremities: No Edema, No Clubbing, Cyanosis Skin: No Rash or Ulcers Neurological: Alert and Oriented x 3, - - strength 5/5 bilaterally; sensation to light touch intact and equal throughout; face symmetrical; speech clear Result Diagrams: 10/02/18 08:58 10/02/18 08:58 Microbiology and Other Data: Microbiology 10/02/18 22:07 Urine Culture - Final Urine Assess/Plan/Problems-Billing Assessment: 77 yo F with h/o chronic pain, breast cancer presented with L arm tingling and weakness H/o recent episodes of poor memory, confusion and hallucinations, as well as 15 lbs wt loss in 4 months since she was placed on Fentanyl - Patient Problems (1) Left arm weakness Status: Acute Code(s): R29.898 - OTH SYMPTOMS AND SIGNS INVOLVING THE MUSCULOSKELETAL SYSTEM SNOMED Code(s): 104310489 Comment: -appears to have resolved -Telemetry without arrhythmia -TTE neg bubble study; MRI without acute abnormality -cont ASA/Plavix -Dr. Carvalho following (2) Hallucination Status: Acute Code(s): R44.3 - HALLUCINATIONS, UNSPECIFIED SNOMED Code(s): 5664224 Comment: -possibly polypharmacy, although patient has not had any of her home psychotropic mediations or opiates while she has been at the -09/22/18 diagnosed with dementia by her PCP Dr. Singleton (3) Anxiety Status: Acute Code(s): F41.9 - ANXIETY DISORDER, UNSPECIFIED SNOMED Code(s) : 06543726 Comment: controlled on home clonazepam, though has not received prn dose since admission (4) Breast CA Status: Acute Code(s): C50.919 - MALIGNANT NEOPLASM OF UNSP SITE OF UNSPECIFIED FEMALE BREAST SNOMED Code(s): 500049437 Comment: cont Arimidex (5) Chronic pain Status: Acute Code(s): G89.29 - OTHER CHRONIC PAIN SNOMED Code(s): 91181577 Comment: -d/c'd Fentanyl at admission -cont oxycodone prn(pt has pruritus secondary to oxycodone and requested Benadryl prn ) -discussed with Dr. Burger, agrees with d/c fentanyl and recommends follow up in pain clinic (6) Dyslipidemia Status: Acute Code(s): E78.5 - HYPERLIPIDEMIA, UNSPECIFIED SNOMED Code(s): 473453311 Comment: LDL 146-Lipitor started (7) Falls frequently Status: Acute Code(s): R29.6 - REPEATED FALLS SNOMED Code(s): 119901178 Comment: PT did not specifically recommend subacute rehab (8) DVT prophylaxis Status: Acute Code(s): Z29.9 - ENCOUNTER FOR PROPHYLACTIC MEASURES, UNSPECIFIED SNOMED Code(s): 415055498 Comment: HSQ (9) Full code status Status: Acute Code(s): Z78.9 - OTHER SPECIFIED HEALTH STATUS SNOMED Code(s) : 149392448 Status and Disposition: inpatient
[2018-10-04] MEDS ORDERED: NS 0.9% 500 ML* 500 ML IV SCH (15:00)
[2018-10-04 15:29] VITALS: BP 167/78
--- NOTE | 2018-10-05 00:16 | DS ---
CC: Primary Care Provider; Dr. Carvalho * DISCHARGE SUMMARY: DATE OF ADMISSION: 10/02/18 DATE OF DISCHARGE: 10/04/18 PROVIDER: ANGELA Vallecillo ATTENDING PHYSICIAN: Dr. Jessie Mack * (dictated by ANGELA Vallecillo). CONSULTING NEUROLOGIST: Dr. Carvalho. PRIMARY DIAGNOSIS: Transient ischemic attack. SECONDARY DIAGNOSES: 1. Gastroesophageal reflux disease. 2. 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 3. Anxiety. 4. Breast cancer in 2015, status post radiation, on Arimidex. 5. History of chronic back pain and bilateral knee osteoarthritic pain, following at pain clinic. 6. Dementia, recently diagnosed by primary care provider in August. STUDIES WHILE IN THE HOSPITAL: MRI of brain on 10/04/18, no evidence for acute intracranial abnormality. Findings consistent with mild chronic small vessel ischemic changes. Transthoracic echocardiogram on 10/04/18. Bubble study negative, ejection fraction of 50% to 55%. No significant valvular disease. Head CT angiogram, on 10/02/18, approximately 40% stenosis of the left proximal internal carotid artery. PERTINENT LAB DATA: Fasting LDL 146. TSH 1.3. HISTORY OF PRESENT ILLNESS/HOSPITAL COURSE: Alayna Ovalle is a 77-year-old white female with past medical history significant for recent diagnoses of dementia, GERD, chronic back pain, and anxiety, who presented to the emergency department on 10/02/18 due to left arm tingling. For further information, please see admitting history and physical dictated by Dr. Patricia Gilmore. During her hospital stay, her left arm tingling resolved and she was seen by neurologist, Dr. Carvalho, during her hospital stay. Given that the patient was found to have elevated fasting LDL and possible TIA versus CVA symptoms, she was started on aspirin, Plavix, and Lipitor. She was seen by Dr. Carvalho in consultation and found to be in agreement with these therapies. Her MRI was negative and her echocardiogram had negative bubble study. Dr. Burger was contacted during this hospitalization regarding her fentanyl patch discontinuation and he was in agreement. During her hospital stay, she did have frequent confusion and delusion; her history of this was unclear by the patient's history and the 's history. I called Dr. Singleton's office and it was confirmed that the patient was diagnosed with dementia and was seen for these issues in her last 3 outpatient visits since July of this year. Her confusion continued despite discontinuation of her fentanyl patch, and during hospital stay, she was not given oxycodone, clonazepam, or trazodone. Therefore, polypharmacy was likely not contributing to her confusion, and it was likely guest experience representative of her dementia. On the day of discharge, the patient is anxious to go home and is tearful. Has no complaints. Denies numbness, weakness or tingling of extremities, visual changes, chest pain, difficulty breathing. The patient's admits that he needs additional help at home to care for his . Physical Therapy evaluated the patient during her stay, did not specifically recommend subacute rehab. PHYSICAL EXAMINATION: Overweight, elderly white female, sitting up in hospital bed, appearing tearful at times. ENT: No nystagmus, EOMI. Visual lanier are full to confrontation. Sclerae anicteric. PERRL. ENT: Mucous membranes moist. Neck: Supple without JVD. Cardio: Regular rate and rhythm without murmurs, rubs, or gallops. Lungs are clear to auscultation. Abdomen: Soft, nontender, nondistended without hepatosplenomegaly. Extremities: No clubbing, cyanosis, or edema. Neuro: No focal deficits. The patient is alert and oriented to self and time, but not location. Strength is 5/5 in all extremities. Skin: Warm, dry, and intact. DISCHARGE PLAN: Diet: Regular unrestricted diet. Activity: The patient may return to her normal activity as tolerated. The patient has been referred to [facility] at this time. They can set up home health services as well as home physical therapy, which is advised. The patient was advised to discontinue her fentanyl patch. I did not provide additional opiate coverage as the patient explained that she is not experiencing pain during her hospital stay and again was not administered any during her hospital stay. She was advised to follow up with the pain clinic regarding this. She additionally was advised to discontinue her clonazepam, as this would likely also contribute to her increased confusion. She was advised to follow up with her primary care provider within 7 to 10 days regarding this hospitalization. She should continue aspirin and plavix for one month and afterward continue just aspirin. She was advised to return to the emergency department should she experience any one- sided weakness, numbness, or tingling; facial droop; slurred speech; sudden changes in vision; new or worsening symptoms. DISCHARGE MEDICATIONS: 1. Aspirin 81 mg p.o. daily. 2. Lipitor 80 mg p.o. daily. 3. Plavix 75 mg p.o. daily. CONTINUED HOME MEDICATIONS: 1. Arimidex 1 mg p.o. daily. 2. Betamethasone topically t.i.d. p.r.n. 3. Ibuprofen 800 mg p.o. t.i.d. with meals p.r.n. 4. Venlafaxine 125 mg p.o. daily. 5. Vitamin D3 2000 units p.o. daily. 6. Nexium 40 mg p.o. daily. 7. Xyzal 5 mg p.o. daily. 8. Nystatin cream 1 application topically t.i.d. p.r.n. 9. Venlafaxine 75 mg p.o. daily. 10. Trazodone 50 to 100 mg p.o. at bedtime p.r.n. CONDITION ON DISCHARGE: Stable. DISPOSITION: Home. TIME SPENT: Approximately 40 minutes was spent on this discharge. Approximately half this time was spent at bedside. ANGELA VALLECILLO [id number]/CPS #: [id number] MTDD
== END 2018-10-04 15:02 | disposition home or self-care (01) ==
LOC: ED 08:18 → INTOOBSV 15:54 → MEDTELE 15:54 → UNDODISOB 10-04 18:30
PROVIDERS: ADMIT Internal Medicine; ATTEND Internal Medicine
DX: G45.9 Transient cerebral ischemic attack, unspecified (principal); K21.9 Gastro-esophageal reflux disease without esophagitis; C44.1292 Squamous cell carcinoma of skin of left lower eyelid, including canthus; F41.9 Anxiety disorder, unspecified; Z85.3 Personal history of malignant neoplasm of breast; G89.29 Other chronic pain; M54.9 Dorsalgia, unspecified; M25.562 Pain in left knee; M25.561 Pain in right knee; F03.90 Unspecified dementia, unspecified severity, without behavioral disturbance, psychotic disturbance, mood disturbance, and anxiety; Z79.82 Long term (current) use of aspirin; Z79.899 Other long term (current) drug therapy; E78.5 Hyperlipidemia, unspecified; Z87.891 Personal history of nicotine dependence; R44.3 Hallucinations, unspecified; R29.898 Other symptoms and signs involving the musculoskeletal system; R29.6 Repeated falls
CPT/HCPCS: 36415; 70450; 70496; 70498; 70551; 80053; 80061; 81003; 81015; 83605; 84443; 84484; 85025; 87086; 93005; 93306; 96360; 96372; 99285; A9270-GY; C8929; G0378; G8978-GP-CK; G8979-GP-CJ; G8987-GO-CL; G8988-GO-CJ; J1644; Q9967

== ENCOUNTER 2018-11-01 12:16 | Emergency (ER) | payer MEDICARE ==
--- NOTE | 2018-11-01 12:18 | UC ---
Abdominal Pain Female HPI - History of Current Complaint Stated Complaint: abdominal pain Time Seen by Provider: 11/01/18 12:18 Allergies/Adverse Reactions: Allergies Allergy/AdvReac Type Severity Reaction Status Date / Time nut - unspecified Allergy Severe Anaphylatic Verified 10/02/18 16:13 Shock buprenorphine [From Butrans] Allergy Hives Verified 10/02/18 08:26 latex Allergy Hives Verified 10/02/18 08:26 hydrocodone AdvReac Itching Verified 10/02/18 08:26 oxycodone AdvReac Hives Verified 10/02/18 08:26 tramadol AdvReac Headache Verified 10/02/18 08:26 NUTS Allergy ANAPHILAXIS Uncoded 10/02/18 08:26 PMH/Surg Hx/FS Hx/Imm Hx - Surgical History Surgical History: Yes Surgery Procedure, Year, and Place: CATARACTS,BOTH,2004-LEFT HAND SURGERY. SHOULDER LEFT. CANCER LEFT EYELID, NO TEAR DUCT NOW. 12/19/14 LEFT BREAST CANCER TUMOR REMOVED. TUBAL LIGATION - Family History Known Family History: Negative: Cardiac Disease - Social History Alcohol Use: None Alcohol Amount: HOLIDAYS Substance Use Type: None Smoking Status (MU): Former Smoker Type: Cigarettes Amount Used/How Often: PACK A DAY Have You Smoked in the Last Year: No When Did the Patient Quit Smoking/Using Tobacco: Back in 's Household Exposure Type: Cigarettes - Immunization History Most Recent Influenza Vaccination: never Most Recent Pneumonia Vaccination: within last 10 years Discharge - Discharge Plan Referrals: Jenni Singleton MD [Primary Care Provider] -
[2018-11-01 12:36] VITALS: BP 120/82
[2018-11-01] MEDS ORDERED: Sodium Phosphate ADULT ENEMA* 118 ml bottle PR ONE (12:55)
--- NOTE | 2018-11-01 13:28 | UC ---
Abdominal Pain Female HPI - HPI Summary HPI Summary: 77-year-old woman comes in with a chief complaint of anal pain and not being able to have a bowel movement. Patient reports she felt normal yesterday. This morning she woke up later breakfast but felt like she had to have a bowel movement. She's been unable to have a bowel movement and feels like there is a large stool stuck in her anal opening. Got a great deal of pain in that area. Denies any other abdominal pain. No complaint of any fevers. No prior abdominal surgeries. - History of Current Complaint Chief Complaint: UCAbdominalPain Stated Complaint: abdominal pain Time Seen by Provider: 11/01/18 12:18 Pain Intensity: 10 Allergies/Adverse Reactions: Allergies Allergy/AdvReac Type Severity Reaction Status Date / Time nut - unspecified Allergy Severe Anaphylatic Verified 11/01/18 12:36 Shock buprenorphine [From Butrans] Allergy Hives Verified 11/01/18 12:36 latex Allergy Hives Verified 11/01/18 12:36 hydrocodone AdvReac Itching Verified 11/01/18 12:36 oxycodone AdvReac Hives Verified 11/01/18 12:36 tramadol AdvReac Headache Verified 11/01/18 12:36 NUTS Allergy ANAPHILAXIS Uncoded 11/01/18 12:36 PMH/Surg Hx/FS Hx/Imm Hx Previously Healthy: Yes - BR CA - Surgical History Surgical History: Yes Surgery Procedure, Year, and Place: CATARACTS,BOTH,2005-LEFT HAND SURGERY. SHOULDER LEFT. CANCER LEFT EYELID, NO TEAR DUCT NOW. 12/19/14 LEFT BREAST CANCER TUMOR REMOVED. TUBAL LIGATION - Family History Known Family History: Negative: Cardiac Disease - Social History Alcohol Use: None Alcohol Amount: H[place]YS Substance Use Type: None Smoking Status (MU): Former Smoker Type: Cigarettes Amount Used/How Often: PACK A DAY Have You Smoked in the Last Year: No When Did the Patient Quit Smoking/Using Tobacco: Back in 's Household Exposure Type: Cigarettes - Immunization History Most Recent Influenza Vaccination: never Most Recent Pneumonia Vaccination: within last 10 years Review of Systems All Other Systems Reviewed And Are Negative: Yes Constitutional: Positive: Negative Skin: Positive: Negative Eyes: Positive: Negative ENT: Positive: Negative Respiratory: Positive: Negative Cardiovascular: Positive: Negative Gastrointestinal: Positive: Other - SEE HPI Motor: Positive: Negative Neurovascular: Positive: Negative Musculoskeletal: Positive: Negative Neurological: Positive: Negative Psychological: Positive: Negative Is Patient Immunocompromised?: No Physical Exam Triage Information Reviewed: Yes Appearance: Well-Appearing, Well-Nourished, Pain Distress - MILD Vital Signs: Initial Vital Signs Temp 97.6 F 11/01/18 12:30 Pulse 78 11/01/18 12:30 Resp 20 11/01/18 12:30 BP 120/82 11/01/18 12:30 Pulse Ox 98 11/01/18 12:30 Vital Signs Reviewed: Yes Eye Exam: Normal Eyes: Positive: Conjunctiva Clear Neck: Positive: Supple Respiratory: Positive: Lungs clear, Normal breath sounds, No respiratory distress Cardiovascular: Positive: RRR Abdomen Description: Positive: Nontender, Soft Bowel Sounds: Positive: Present Musculoskeletal: Positive: Strength Intact, ROM Intact Neurological: Positive: Alert Psychological: Positive: Age Appropriate Behavior Skin Exam: Normal Abd Pain Female Course/Dx - Course Course Of Treatment: In clinic patient was given a fleets enema by nursing. After the fleets enema she had a bowel movement and she feels much better with no more pain. - Differential Dx/Diagnosis Provider Diagnosis: Constipation Discharge - Sign-Out/Discharge Documenting (check all that apply): Patient Departure All imaging exams completed and their final reports reviewed: No Studies - Discharge Plan Condition: Stable Disposition: HOME Patient Education Materials: Constipation (ED), High Fiber Diet (ED) Referrals: Jenni Singleton MD [Primary Care Provider] - Additional Instructions: FOLLOW UP WITH YOUR DOCTOR IF NOT COMPLETELY IMPROVED. GET RECHECKED SOONER IF YOUR CONDITION WORSENS OR ANY QUESTIONS OR CONCERNS. - Billing Disposition and Condition Condition: STABLE Disposition: Home
== END 2018-11-01 13:33 | disposition home or self-care (01) ==
LOC: UCEAST 12:16
DX: K59.00 Constipation, unspecified (principal); Z87.891 Personal history of nicotine dependence; Z88.5 Allergy status to narcotic agent; Z91.040 Latex allergy status; Z85.3 Personal history of malignant neoplasm of breast; Z85.840 Personal history of malignant neoplasm of eye
CPT/HCPCS: 99212; A9270-GY; G0463

== ENCOUNTER 2020-04-01 22:13 | Inpatient (IN) ==
[2020-04-01] MEDS ORDERED: NS 0.9% 1000 ml BAG 1,000 ML IV ONE (22:22)
[2020-04-01] MEDS ORDERED: Heparin - STEMI 5,000 UNITS/ML 1 ml VIAL IV ONE (22:22)
[2020-04-01] MEDS ORDERED: nitroGLYCERIN DRIP 25,000 MCG in Premix IV 0 ML IV ONE (22:22)
[2020-04-01] MEDS ORDERED: nitroGLYCERIN DRIP 25,000 MCG/250 ML BTL ONE ×2 (22:26→22:43)
[2020-04-01] MEDS ORDERED: Metoprolol Tartrate 5 mg VIAL 5 ml VIAL (1 mg/ml) IV PRN (22:29)
[2020-04-01] MEDS ORDERED: Metoprolol Tartrate 5 mg VIAL 5 ml VIAL (1 mg/ml) ONE (22:33)
[2020-04-01 22:37] LABS: ABS Basophils 0.2 10^3/ul (0-0.2); ABS Eosinophils 0.2 10^3/ul (0-0.6); ABS Lymphocytes 2.6 10^3/ul (1.0-4.8); ABS Monocytes 0.9 10^3/ul (0-0.8); ABS Neutrophils 4.2 10^3/ul (1.5-7.7); Eosinophil % 2.5 %; Hematocrit 46 % (35-47); Lymphocyte % 32.4 %; Mean Corpuscular HGB Conc 33 g/dL (31-36); Mean Corpuscular Hemoglobin 32 pg (27-31); Mean Corpuscular Volume 98 fL (80-97); Mean Platelet Volume 9.8 fL (7.4-10.4); Nucleated Red Blood Cells % 0.1; Platelet Count 231 10^3/uL (150-450); Red Blood Count 4.65 10^6 /uL (3.70-4.87); Red Cell Distribution Width 14 % (10-15); White Blood Count 8.2 10^3/uL (3.5-10.8)
[2020-04-01] MEDS ORDERED: Midazolam 5 mg/5 ml VIAL 1 mg/ml 5 ml VIAL (5 mg) ONE (22:42)
[2020-04-01] MEDS ORDERED: fentaNYL 100 mcg/2 ml 50 MCG/ML VIAL ONE (22:42)
[2020-04-01] MEDS ORDERED: Heparin 1,000 UNIT/ML 10 ml (10,000 UNITS) CATHLAB/DIALYSIS ONE (22:42)
[2020-04-01] MEDS ORDERED: VERAPAMIL 2.5 MG/ML 2 ML VIAL ** 5 mg/2 ml ONE (22:42)
[2020-04-01] MEDS ORDERED: Heparin 2 UNITS/ML 1000 mls 2,000 ML IV ONE (22:43)
[2020-04-01] MEDS ORDERED: Iohexol 350 (CONTRAST) 200 ML MDV IV ONE (22:43)
[2020-04-01] MEDS ORDERED: Lidocaine 1% VIAL 10 MG/ML VIAL ONE (22:43)
[2020-04-01 22:45] LABS: Activated Partial Thrombo Time 27.3 seconds (26.0-38.0); INR 1.04 (0.82-1.09)
[2020-04-01 22:53] LABS: ALT 16 U/L (7-52); AST 19 U/L (13-39); Albumin/Globulin Ratio 1.3 (1-3); Alkaline Phosphatase 142 U/L (34-104); Anion Gap 10 mmol/L (2-11); BUN/Creatinine Ratio 21.5 (8-20); Blood Urea Nitrogen 20 mg/dL (6-24); CO2 Carbon Dioxide 25 mmol/L (22-32); Calcium 8.8 mg/dL (8.6-10.3); Chloride 106 mmol/L (101-111); Creatine Kinase 23 U/L (10-223); EGFR African American 70.2 (>60); Glucose 136 mg/dL (70-100); LDL Cholesterol Direct 138 mg/dL; Potassium 3.6 mmol/L (3.5-5.0); Sodium 141 mmol/L (135-145)
[2020-04-01 22:57] LABS: CKMB ng/mL 2.4 ng/mL (0.6-6.3)
[2020-04-01 23:04] LABS: Troponin I 0.05 ng/mL (<0.03)
[2020-04-01] MEDS ORDERED: Amiodarone IV 150 mg/3 ml VIAL ONE (23:22)
[2020-04-02] MEDS ORDERED: Albuterol HFA INHALER 8 gm MDI INH PRN (00:54)
[2020-04-02 01:09] LABS: Troponin I 1.13 ng/mL (<0.03)
[2020-04-02 03:35] LABS: Troponin I 6.22 ng/mL (<0.03)
[2020-04-02 05:22] LABS: Anion Gap 8 mmol/L (2-11); BUN/Creatinine Ratio 24.3 (8-20); Blood Urea Nitrogen 17 mg/dL (6-24); CO2 Carbon Dioxide 25 mmol/L (22-32); Calcium 8.8 mg/dL (8.6-10.3); Chloride 108 mmol/L (101-111); Cholesterol 190 mg/dL; EGFR African American 97.4 (>60); EGFR Non-African American 80.5 (>60); Glucose 116 mg/dL (70-100); HDL Cholesterol 48.1 mg/dL; LDL Cholesterol 122 mg/dL; Sodium 141 mmol/L (135-145); Triglycerides 101 mg/dL
[2020-04-02 05:39] LABS: ABS Basophils 0.1 10^3/ul (0-0.2); ABS Eosinophils 0.1 10^3/ul (0-0.6); ABS Monocytes 1.2 10^3/ul (0-0.8); ABS Neutrophils 5.8 10^3/ul (1.5-7.7); Eosinophil % 1.1 %; Hematocrit 40 % (35-47); Hemoglobin 13.2 g/dL (12.0-16.0); Lymphocyte % 21.8 %; Mean Corpuscular HGB Conc 33 g/dL (31-36); Mean Corpuscular Hemoglobin 33 pg (27-31); Mean Corpuscular Volume 98 fL (80-97); Mean Platelet Volume 9.8 fL (7.4-10.4); Platelet Count 218 10^3/uL (150-450); Red Blood Count 4.06 10^6 /uL (3.70-4.87); Red Cell Distribution Width 14 % (10-15); White Blood Count 9.1 10^3/uL (3.5-10.8)
[2020-04-02 06:12] LABS: Troponin I 11.06 ng/mL (<0.03)
[2020-04-02] MEDS ORDERED: Perflutren Lipid Microsphere 3 ML VIAL ONE (08:17)
[2020-04-02] MEDS: Aspirin EC 81 mg TAB.EC (enteric coated) PO SCH (09:40)
[2020-04-02] MEDS: Venlafaxine XR 75 mg PO SCH (09:41)
[2020-04-02 14:41] LABS: Troponin I 9.01 ng/mL (<0.03)
[2020-04-03 05:04] LABS: ABS Basophils 0.1 10^3/ul (0-0.2); ABS Eosinophils 0.1 10^3/ul (0-0.6); ABS Lymphocytes 1.8 10^3/ul (1.0-4.8); ABS Monocytes 1.2 10^3/ul (0-0.8); ABS Neutrophils 7.8 10^3/ul (1.5-7.7); Eosinophil % 1.1 %; Hematocrit 42 % (35-47); Lymphocyte % 16.4 %; Mean Corpuscular HGB Conc 34 g/dL (31-36); Mean Corpuscular Hemoglobin 32 pg (27-31); Mean Corpuscular Volume 96 fL (80-97); Mean Platelet Volume 9.6 fL (7.4-10.4); Platelet Count 232 10^3/uL (150-450); Red Blood Count 4.34 10^6 /uL (3.70-4.87); Red Cell Distribution Width 14 % (10-15)
[2020-04-03] MEDS: Venlafaxine XR 75 mg PO SCH (08:42)
[2020-04-03] MEDS: Aspirin EC 81 mg TAB.EC (enteric coated) PO SCH (08:45)
[2020-04-03] MEDS ORDERED: HYDROcodone/ACETAMIN 5/325 mg TAB PO PRN (09:17)
[2020-04-04] MEDS: Aspirin EC 81 mg TAB.EC (enteric coated) PO SCH (08:17)
[2020-04-04] MEDS: Venlafaxine XR 75 mg PO SCH (08:17)
[2020-04-04 09:05] LABS: BUN/Creatinine Ratio 19.2 (8-20); Calcium 8.8 mg/dL (8.6-10.3); EGFR Non-African American 71.1 (>60); Potassium 3.8 mmol/L (3.5-5.0)
[2020-04-04] MEDS ORDERED: HYDROcodone/ACETAMIN 5/325 mg TAB PO PRN (09:15)
[2020-04-04 12:37] VITALS: BP 153/65
== END 2020-04-04 16:15 | disposition home or self-care (01) ==
LOC: ED 22:13 → CHICATH 22:51 → ICU 04-02 00:12 → MEDTELE 04-03 14:22
PROVIDERS: ADMIT Internal Medicine Cardiovascular Disease

== ENCOUNTER 2021-08-09 20:56 | Inpatient (IN) ==
[2021-08-09 22:07] LABS: ABS Eosinophils 0.2 10^3/ul (0-0.6); ABS Lymphocytes 1.4 10^3/ul (1.0-4.8); ABS Monocytes 0.8 10^3/ul (0-0.8); ABS Neutrophils 6.6 10^3/ul (1.5-7.7); Eosinophil % 2.1 %; Hematocrit 37 % (35-47); Hemoglobin 12.5 g/dL (12.0-16.0); Lymphocyte % 15.7 %; Mean Corpuscular HGB Conc 33 g/dL (31-36); Mean Corpuscular Hemoglobin 33 pg (27-31); Mean Corpuscular Volume 99 fL (80-97); Mean Platelet Volume 9.2 fL (7.4-10.4); Platelet Count 209 10^3/uL (150-450); Red Blood Count 3.75 10^6 /uL (3.70-4.87); Red Cell Distribution Width 14 % (10-15)
[2021-08-09] MEDS ORDERED: Morphine 4 MG/ML VIAL (1 ml) IV ONE (22:25)
[2021-08-09 22:59] LABS: ALT 15 U/L (7-52); Albumin 3.8 g/dL (3.2-5.2); Albumin/Globulin Ratio 1.7 (1-3); Alcohol, S < 13 mg/dL (<13); Alkaline Phosphatase 91 U/L (35-149); Blood Urea Nitrogen 23 mg/dL (6-24); CO2 Carbon Dioxide 23 mmol/L (22-32); Chloride 106 mmol/L (101-111); Globulin 2.3 g/dL (2-4); Glucose 114 mg/dL (70-100); Sodium 138 mmol/L (135-145); Total Protein 6.1 g/dL (6.4-8.9); eGFR CKD-EPI 49.9 (>60)
[2021-08-09 23:11] LABS: Anion Gap 9 mmol/L (2-11)
[2021-08-09] MEDS ORDERED: Propofol 10 MG/ML 20 ML BTL IV PUSH ONE (23:52)
[2021-08-10] MEDS ORDERED: Ondansetron 4 mg VIAL 2 MG/ML 2 ml VIAL IV PRN ×2 (02:15→23:02)
[2021-08-10] MEDS ORDERED: Heparin 5000 UNITS/ML 1 mL VIAL SUBCUT ONE (02:23)
[2021-08-10] MEDS ORDERED: oxyCODONE/Acetamin 10/325(NF) TAB PO PRN (02:25)
[2021-08-10] MEDS ORDERED: Albuterol HFA INHALER 8 gm MDI INH PRN (02:25)
[2021-08-10 03:10] LABS: Urine Appearance Cloudy; Urine Bilirubin Negative (Negative); Urine Blood 2+ (Negative); Urine Color Yellow; Urine Glucose Negative (Negative); Urine Ketones Negative (Negative); Urine Nitrite Negative (Negative); Urine Protein Negative (Negative); Urine Specific Gravity 1.027 (1.002-1.030); Urine Urobilinogen Negative (Negative)
[2021-08-10] MEDS: Morphine 4 MG/ML VIAL (1 ml) IV PRN ×3 (03:11→18:08)
[2021-08-10 03:17] LABS: Urine Bacteria 1+ (Absent); Urine Red Blood Cell 3+(>10/hpf) (Absent); Urine Squamous Epithelial Cell Present (Absent); Urine White Blood Cell Trace(0-5/hpf) (Absent)
[2021-08-10] MEDS: Acetaminophen IV 1 GM/100ML 100 ML IV SCH ×2 (04:37→13:16)
[2021-08-10] MEDS: NS 0.9% 1000 ml BAG 1,000 ML IV SCH (05:32)
[2021-08-10] MEDS: GLYCOPYRROLATE 1 MG PO SCH (08:42)
[2021-08-10] MEDS: Erythromycin OPTH OINT APPLIC OINT OPHTHALMIC SCH ×2 (08:43→14:11)
[2021-08-10] MEDS: Venlafaxine XR 75 mg PO SCH (08:43)
[2021-08-10] MEDS: Silver Sulfadiazine 1% 400gm JAR TOPICAL SCH (08:52)
[2021-08-10] MEDS: Aspirin EC 81 mg TAB.EC (enteric coated) PO SCH (13:18)
[2021-08-10] MEDS ORDERED: ceFAZolin 2 GM in NS PREMIX 2 GM/100 ML BAG IVPB ONE (18:07)
[2021-08-10] MEDS ORDERED: Propofol 10 MG/ML 20 ML BTL ONE ×2 (22:19→23:36)
[2021-08-10] MEDS ORDERED: Naloxone 0.4 mg VIAL 0.4 mg/ml 1 ml VIAL IV PRN (23:02)
[2021-08-11] MEDS ORDERED: Bupivacaine 0.25% SDV PF 10 ML VIAL INJ ONE (00:01)
[2021-08-11] MEDS: Acetaminophen IV 1 GM/100ML 100 ML IV SCH ×4 (01:23→18:03)
[2021-08-11] MEDS ORDERED: fentaNYL 100 mcg/2 ml 50 MCG/ML VIAL ONE (01:26)
[2021-08-11] MEDS: fentaNYL 100 mcg/2 ml 50 MCG/ML VIAL IV PRN ×3 (01:36→02:02)
[2021-08-11] MEDS ORDERED: Dexmedetomidine 200 mcg/2 ml 2 ml VIAL (200 mcg) ONE (01:44)
[2021-08-11] MEDS ORDERED: Sterile Water for Inj 10 ML ONE (01:44)
[2021-08-11] MEDS: NS 0.9% 1000 ml BAG 1,000 ML IV SCH (02:10)
[2021-08-11] MEDS: Erythromycin OPTH OINT APPLIC OINT OPHTHALMIC SCH ×5 (03:00→21:57)
[2021-08-11] MEDS: Mometasone 110 MCG MDI INH SCH ×2 (03:01→19:59)
[2021-08-11] MEDS: GLYCOPYRROLATE 1 MG PO SCH ×3 (03:01→21:47)
[2021-08-11] MEDS: CMC:Ketoconazole 2 % CREAM (NF) 30 GM TUBE TOPICAL SCH ×2 (03:01→21:58)
[2021-08-11] MEDS: Morphine 4 MG/ML VIAL (1 ml) IV PRN ×3 (03:18→15:37)
[2021-08-11] MEDS: ceFAZolin 1 GM X 3 DOSES POST-OP Q8H (AddVan) IVPB SCH ×3 (05:10→21:55)
[2021-08-11] MEDS ORDERED: Lisinopril/HCTZ 20/12.5 TB(NF) PO SCH (09:00)
[2021-08-11] MEDS: Venlafaxine XR 75 mg PO SCH (10:16)
[2021-08-11] MEDS: Aspirin EC 81 mg TAB.EC (enteric coated) PO SCH (10:16)
[2021-08-11] MEDS: Cholecalciferol (VIT D3) 1,000 unit TAB PO SCH (10:16)
[2021-08-11] MEDS: Silver Sulfadiazine 1% 400gm JAR TOPICAL SCH (10:17)
[2021-08-11 11:51] LABS: ABS Neutrophils 5.9 10^3/ul (1.5-7.7); Eosinophil % 0.3 %; Hematocrit 28 % (35-47); Hemoglobin 9.3 g/dL (12.0-16.0); Lymphocyte % 13.1 %; Mean Corpuscular HGB Conc 34 g/dL (31-36); Mean Corpuscular Hemoglobin 33 pg (27-31); Mean Corpuscular Volume 98 fL (80-97); Mean Platelet Volume 8.7 fL (7.4-10.4); Platelet Count 167 10^3/uL (150-450); Red Cell Distribution Width 14 % (10-15)
[2021-08-11 12:23] LABS: Anion Gap 7 mmol/L (2-11); Blood Urea Nitrogen 20 mg/dL (6-24); CO2 Carbon Dioxide 21 mmol/L (22-32); Calcium 7.8 mg/dL (8.6-10.3); Chloride 107 mmol/L (101-111); Glucose 135 mg/dL (70-100); Potassium 3.7 mmol/L (3.5-5.0); Sodium 135 mmol/L (135-145); eGFR CKD-EPI 65.1 (>60)
[2021-08-11 14:16] LABS: % Iron Saturation 14 % (15-55); Albumin 3.2 g/dL (3.2-5.2); Iron 31 ug/dL (50-212); Total Iron Binding Capacity 220 mcg/dL (250-450); Transferrin 157 mg/dL (203-362); Unsaturated Iron Binding 189 ug/dL
[2021-08-11 14:37] LABS: Ferritin 174.4 ng/mL (11-307)
[2021-08-11 14:41] LABS: Folate > 20.00 ng/mL (5.90-24.80)
[2021-08-11 14:42] LABS: Vitamin B12 217 pg/mL (180-914)
[2021-08-11] MEDS ORDERED: NS 0.9% 1000 ml BAG 1,000 ML IV SCH (18:30)
[2021-08-12] MEDS: Acetaminophen IV 1 GM/100ML 100 ML IV SCH ×2 (02:34→11:59)
[2021-08-12 06:04] LABS: ABS Lymphocytes 1.5 10^3/ul (1.0-4.8); ABS Monocytes 1.2 10^3/ul (0-0.8); ABS Neutrophils 5.2 10^3/ul (1.5-7.7); Eosinophil % 0.5 %; Hematocrit 25 % (35-47); Hemoglobin 8.4 g/dL (12.0-16.0); Lymphocyte % 18.7 %; Mean Corpuscular HGB Conc 34 g/dL (31-36); Mean Corpuscular Hemoglobin 34 pg (27-31); Mean Corpuscular Volume 99 fL (80-97); Mean Platelet Volume 9.1 fL (7.4-10.4); Platelet Count 147 10^3/uL (150-450); Red Blood Count 2.47 10^6 /uL (3.70-4.87); Red Cell Distribution Width 14 % (10-15); White Blood Count 7.9 10^3/uL (3.5-10.8)
[2021-08-12 06:38] LABS: Magnesium 1.8 mg/dL (1.9-2.7); Potassium 3.7 mmol/L (3.5-5.0)
[2021-08-12] MEDS ORDERED: Potassium Chlor 20 meq TAB.ER PO ONE (09:03)
[2021-08-12] MEDS ORDERED: Magnesium Sulfate 2 gm BAG 2 GM/50 ML BAG IVPB ONE (09:03)
[2021-08-12] MEDS: Aspirin EC 81 mg TAB.EC (enteric coated) PO SCH (10:04)
[2021-08-12] MEDS: Cholecalciferol (VIT D3) 1,000 unit TAB PO SCH (10:04)
[2021-08-12] MEDS: GLYCOPYRROLATE 1 MG PO SCH ×2 (10:05→21:16)
[2021-08-12] MEDS: Venlafaxine XR 75 mg PO SCH (10:06)
[2021-08-12] MEDS: Erythromycin OPTH OINT APPLIC OINT OPHTHALMIC SCH ×4 (10:07→21:17)
[2021-08-12] MEDS: Silver Sulfadiazine 1% 400gm JAR TOPICAL SCH ×2 (10:07→10:11)
[2021-08-12] MEDS: Mometasone 110 MCG MDI INH SCH (20:28)
[2021-08-12] MEDS: CMC:Ketoconazole 2 % CREAM (NF) 30 GM TUBE TOPICAL SCH (21:17)
[2021-08-13 06:27] LABS: ABS Eosinophils 0.1 10^3/ul (0-0.6); ABS Lymphocytes 1.4 10^3/ul (1.0-4.8); ABS Monocytes 1.1 10^3/ul (0-0.8); ABS Neutrophils 5.5 10^3/ul (1.5-7.7); Eosinophil % 1.4 %; Hematocrit 24 % (35-47); Hemoglobin 8.3 g/dL (12.0-16.0); Lymphocyte % 17.3 %; Mean Corpuscular HGB Conc 34 g/dL (31-36); Mean Corpuscular Hemoglobin 34 pg (27-31); Mean Corpuscular Volume 100 fL (80-97); Mean Platelet Volume 9.1 fL (7.4-10.4); Platelet Count 170 10^3/uL (150-450); Red Blood Count 2.45 10^6 /uL (3.70-4.87); Red Cell Distribution Width 14 % (10-15); White Blood Count 8.2 10^3/uL (3.5-10.8)
[2021-08-13 07:00] LABS: Calcium 8.1 mg/dL (8.6-10.3); Potassium 3.9 mmol/L (3.5-5.0); eGFR CKD-EPI 86.8 (>60)
[2021-08-13] MEDS: Cholecalciferol (VIT D3) 1,000 unit TAB PO SCH (09:25)
[2021-08-13] MEDS: Venlafaxine XR 75 mg PO SCH (09:25)
[2021-08-13] MEDS: Aspirin EC 81 mg TAB.EC (enteric coated) PO SCH (09:25)
[2021-08-13] MEDS: Erythromycin OPTH OINT APPLIC OINT OPHTHALMIC SCH ×4 (09:26→20:04)
[2021-08-13] MEDS: Silver Sulfadiazine 1% 400gm JAR TOPICAL SCH (09:26)
[2021-08-13] MEDS: GLYCOPYRROLATE 1 MG PO SCH (10:05)
[2021-08-13] MEDS: CMC:Ketoconazole 2 % CREAM (NF) 30 GM TUBE TOPICAL SCH (20:04)
[2021-08-13] MEDS: Mometasone 110 MCG MDI INH SCH (21:00)
[2021-08-14] MEDS: Aspirin EC 81 mg TAB.EC (enteric coated) PO SCH (11:52)
[2021-08-14] MEDS: Silver Sulfadiazine 1% 400gm JAR TOPICAL SCH (11:53)
[2021-08-14] MEDS: Venlafaxine XR 75 mg PO SCH (11:53)
[2021-08-14] MEDS: Cholecalciferol (VIT D3) 1,000 unit TAB PO SCH (11:53)
[2021-08-14] MEDS: Erythromycin OPTH OINT APPLIC OINT OPHTHALMIC SCH ×4 (11:53→21:02)
[2021-08-14 12:26] LABS: ABS Eosinophils 0.1 10^3/ul (0-0.6); ABS Lymphocytes 1.3 10^3/ul (1.0-4.8); ABS Neutrophils 5.5 10^3/ul (1.5-7.7); Hematocrit 26 % (35-47); Hemoglobin 8.6 g/dL (12.0-16.0); Lymphocyte % 16.6 %; Mean Corpuscular HGB Conc 33 g/dL (31-36); Mean Corpuscular Hemoglobin 33 pg (27-31); Mean Corpuscular Volume 99 fL (80-97); Mean Platelet Volume 8.7 fL (7.4-10.4); Nucleated Red Blood Cells % 0.1; Platelet Count 247 10^3/uL (150-450); Red Blood Count 2.64 10^6 /uL (3.70-4.87); Red Cell Distribution Width 14 % (10-15); White Blood Count 7.9 10^3/uL (3.5-10.8)
[2021-08-14] MEDS: Mometasone 110 MCG MDI INH SCH (20:52)
[2021-08-14] MEDS: CMC:Ketoconazole 2 % CREAM (NF) 30 GM TUBE TOPICAL SCH (23:00)
[2021-08-15 08:24] VITALS: BP 144/52
[2021-08-15] MEDS: Erythromycin OPTH OINT APPLIC OINT OPHTHALMIC SCH ×2 (08:51→12:31)
[2021-08-15] MEDS: Silver Sulfadiazine 1% 400gm JAR TOPICAL SCH (08:51)
[2021-08-15] MEDS: Venlafaxine XR 75 mg PO SCH (08:52)
[2021-08-15] MEDS: Cholecalciferol (VIT D3) 1,000 unit TAB PO SCH (08:53)
[2021-08-15] MEDS: Aspirin EC 81 mg TAB.EC (enteric coated) PO SCH (08:54)
[2021-08-15 09:53] LABS: Rapid COVID-19 Molecular Undetected (Undetected)
== END 2021-08-15 14:20 | DRG 481 ==
LOC: ED 20:56 → SUATTDRO 08-10 02:15 → EDHOLD 08-10 02:15 → SSU 08-11 02:31
PROVIDERS: ADMIT Internal Medicine; ATTEND Internal Medicine

== ENCOUNTER 2022-01-08 16:16 | Inpatient (IN) ==
[2022-01-08 18:45] LABS: ABS Basophils 0.1 10^3/ul (0-0.2); ABS Lymphocytes 0.7 10^3/ul (1.0-4.8); ABS Monocytes 0.8 10^3/ul (0-0.8); ABS Neutrophils 10.7 10^3/ul (1.5-7.7); Eosinophil % 0.2 %; Hematocrit 38 % (35-47); Hemoglobin 12.5 g/dL (12.0-16.0); Lymphocyte % 5.9 %; Mean Corpuscular HGB Conc 33 g/dL (31-36); Mean Corpuscular Hemoglobin 30 pg (27-31); Mean Corpuscular Volume 91 fL (80-97); Mean Platelet Volume 9.2 fL (7.4-10.4); Platelet Count 270 10^3/uL (150-450); Red Blood Count 4.18 10^6 /uL (3.70-4.87); Red Cell Distribution Width 19 % (10-15); White Blood Count 12.3 10^3/uL (3.5-10.8)
[2022-01-08] MEDS ORDERED: NS 0.9% 1000 ml BAG 1,000 ML IV ONE ×2 (19:03→20:09)
[2022-01-08 19:07] LABS: Activated Partial Thrombo Time 26.1 seconds (26.0-38.0); High Sens Troponin Baseline 3 pg/mL (<15); INR 1.1 (0.89-1.11)
[2022-01-08] MEDS ORDERED: cefTRIAXone 1 gm/50 mL D5W 1 GM/50 ML BAG IV ONE (19:23)
[2022-01-08 19:34] LABS: ALT 9 U/L (7-52); Albumin 3.7 g/dL (3.2-5.2); Albumin/Globulin Ratio 1.4 (1-3); Alkaline Phosphatase 130 U/L (35-149); Blood Urea Nitrogen 24 mg/dL (6-24); C Reactive Protein 38.14 mg/L (<8.01); CO2 Carbon Dioxide 22 mmol/L (22-32); Calcium 9.2 mg/dL (8.6-10.3); Chloride 100 mmol/L (101-111); Globulin 2.7 g/dL (2-4); Glucose 111 mg/dL (70-100); Sodium 135 mmol/L (135-145); Total Protein 6.4 g/dL (6.4-8.9); eGFR CKD-EPI 37.9 (>60)
[2022-01-08 19:52] LABS: Anion Gap 13 mmol/L (2-11); Potassium 3.5 mmol/L (3.5-5.0)
[2022-01-08 19:58] LABS: AST 15 U/L (13-39)
[2022-01-08 19:59] LABS: Urine Appearance Cloudy; Urine Bilirubin Negative (Negative); Urine Blood 2+ (Negative); Urine Color Amber; Urine Glucose Negative (Negative); Urine Ketones Trace (Negative); Urine Nitrite Negative (Negative); Urine Protein 2+(100 mg/dL) (Negative); Urine Specific Gravity 1.015 (1.002-1.030); Urine Urobilinogen Positive (Negative)
[2022-01-08 20:10] LABS: Urine Bacteria Absent (Absent); Urine Red Blood Cell 3+(>10/hpf) (Absent); Urine Squamous Epithelial Cell Present (Absent); Urine White Blood Cell 3+(>20/hpf) (Absent)
[2022-01-08 20:33] LABS: Alcohol, S < 13 mg/dL (<13)
[2022-01-08 20:51] LABS: Urine Benzodiazepine Screen Presumptive Positive (None Detect); Urine Cannabinoids Screen None Detected (None Detect); Urine Opiates Screen Presumptive Positive (None Detect)
[2022-01-08 23:40] LABS: High Sensitivity Troponin 1 Hr 6 pg/mL (<15)
[2022-01-09] MEDS ORDERED: Potassium Chlor 20 meq TAB.ER PO ONE (05:28)
[2022-01-09 06:21] LABS: Hematocrit 32 % (35-47); Hemoglobin 10.9 g/dL (12.0-16.0); Mean Corpuscular HGB Conc 34 g/dL (31-36); Mean Corpuscular Hemoglobin 31 pg (27-31); Mean Corpuscular Volume 90 fL (80-97); Mean Platelet Volume 8.7 fL (7.4-10.4); Platelet Count 212 10^3/uL (150-450); Red Blood Count 3.55 10^6 /uL (3.70-4.87); Red Cell Distribution Width 19 % (10-15); White Blood Count 9.1 10^3/uL (3.5-10.8)
[2022-01-09] MEDS: Enoxaparin 40 MG/0.4 ML SYR SUBCUT SCH (06:39)
[2022-01-09 06:59] LABS: Calcium 8.2 mg/dL (8.6-10.3); Magnesium 1.8 mg/dL (1.9-2.7); Potassium 3.3 mmol/L (3.5-5.0); eGFR CKD-EPI 50.2 (>60)
[2022-01-09] MEDS ORDERED: Magnesium Sulfate 2 gm BAG 2 GM/50 ML BAG IVPB ONE (07:37)
[2022-01-09] MEDS: Venlafaxine XR 75 mg PO SCH (08:31)
[2022-01-09] MEDS ORDERED: Venlafaxine XR 75 mg PO SCH (09:00)
[2022-01-09] MEDS ORDERED: cefTRIAXone 1 gm/50 mL D5W 1 GM/50 ML BAG IV SCH (21:00)
[2022-01-10 06:38] LABS: ABS Eosinophils 0.1 10^3/ul (0-0.6); ABS Lymphocytes 1.2 10^3/ul (1.0-4.8); ABS Monocytes 0.7 10^3/ul (0-0.8); ABS Neutrophils 4.7 10^3/ul (1.5-7.7); Eosinophil % 1.1 %; Hematocrit 31 % (35-47); Hemoglobin 10.5 g/dL (12.0-16.0); Lymphocyte % 18.4 %; Mean Corpuscular HGB Conc 34 g/dL (31-36); Mean Corpuscular Hemoglobin 30 pg (27-31); Mean Corpuscular Volume 89 fL (80-97); Platelet Count 201 10^3/uL (150-450); Red Cell Distribution Width 19 % (10-15); White Blood Count 6.8 10^3/uL (3.5-10.8)
[2022-01-10] MEDS ORDERED: Magnesium Sulfate 2 gm BAG 2 GM/50 ML BAG IVPB ONE (07:12)
[2022-01-10 07:13] LABS: Calcium 8.3 mg/dL (8.6-10.3); Magnesium 1.9 mg/dL (1.9-2.7); Potassium 3.4 mmol/L (3.5-5.0); eGFR CKD-EPI 73.5 (>60)
[2022-01-10 07:20] LABS: Ferritin 237.4 ng/mL (11-307)
[2022-01-10] MEDS ORDERED: KCL 20 MEQ/100 ML IVPREMIX 20 MEQ/100 ML BAG IV SCH (08:00)
[2022-01-10] MEDS: Enoxaparin 40 MG/0.4 ML SYR SUBCUT SCH (08:23)
[2022-01-10] MEDS: Venlafaxine XR 75 mg PO SCH (08:23)
[2022-01-10] MEDS: KCL 20 MEQ/100 ML IVPREMIX 20 MEQ/100 ML BAG IV SCH ×3 (10:22→17:13)
[2022-01-10 15:46] VITALS: BP 130/59
== END 2022-01-10 17:20 | disposition home or self-care (01) | DRG 872 ==
LOC: ED 16:16 → EDHOLD 21:50 → SUATTDRO 21:50 → EDHOLD 01-09 12:06 → MEDTELE 01-09 12:59
PROVIDERS: ADMIT Hospitalist; ATTEND Hospitalist

== ENCOUNTER 2024-03-27 04:43 | Inpatient (IN) ==
[2024-03-27 05:43] LABS: ABS Lymphocytes 0.8 10^3/uL (1.0-4.8); ABS Monocytes 0.9 10^3/uL (0.0-0.9); Eosinophil % 0.2 %; Hematocrit 38.7 % (35-45); Hemoglobin 13.2 g/dL (11.5-14.3); Lymphocyte % 11.5 %; Mean Corpuscular Hemoglobin 32.8 pg (27-33); Mean Corpuscular Volume 96.4 fL (80-97); Mean Platelet Volume 9.1 fL (7.5-11.2); Platelet Count 207 10^3/uL (150-450); Red Blood Count 4.02 10^6/uL (3.63-4.92); Red Cell Distribution Width 14.3 % (12-17); White Blood Count 6.8 10^3/uL (3.8-11.8)
[2024-03-27 05:50] LABS: INR 1.21 (0.85-1.14)
[2024-03-27 06:17] LABS: Urine Appearance Clear; Urine Bilirubin Negative (Negative); Urine Blood 2+ (Negative); Urine Color Light-Yellow; Urine Glucose Negative (Negative); Urine Ketones Negative (Negative); Urine Nitrite Negative (Negative); Urine Protein 1+ (>=30 mg/dL) (Negative); Urine Specific Gravity 1.014 (1.002-1.030); Urine Urobilinogen Negative (Negative)
[2024-03-27 06:24] LABS: Urine Bacteria Absent /HPF (Absent); Urine Red Blood Cell 3+(>10/hpf) /HPF (0-Trace); Urine Squamous Epithelial Cell Present /HPF (Absent); Urine White Blood Cell 1+(6-10/hpf) /HPF (0-Trace)
[2024-03-27 07:08] LABS: ALT 10 U/L (7-52); Acetaminophen < 15 mcg/mL; Albumin 3.8 g/dL (3.5-5.7); Albumin/Globulin Ratio 1.3 (1-3); Alcohol, S < 13 mg/dL (<13); Alkaline Phosphatase 120 U/L (35-149); Anion Gap 13 mmol/L (2-16); Blood Urea Nitrogen 15 mg/dL (6-24); C Reactive Protein 25.41 mg/L (<8.01); CO2 Carbon Dioxide 20 mmol/L (22-32); Chloride 102 mmol/L (101-111); Glucose 101 mg/dL (70-100); Salicylate < 2.50 mg/dL (<30); Sodium 135 mmol/L (135-145); Total Bilirubin 0.6 mg/dL (0.2-1.0); Total Protein 6.8 g/dL (6.4-8.9); eGFR CKD-EPI 49.5 (>60)
[2024-03-27 07:32] LABS: High Sens Troponin Baseline 11 pg/mL (<15)
[2024-03-27] MEDS: Acetaminophen IV 1 GM/100ML 1,000 MG/100 ML BAG IV ONE (12:05)
[2024-03-27 12:10] LABS: Potassium Redraw 3.7 mmol/L (3.5-5.0)
[2024-03-27] MEDS ORDERED: LORazepam 2 mg VIAL 1 ml IV PUSH SCH (13:00)
[2024-03-27] MEDS ORDERED: Naloxone Nasal Spray 4 MG/0.1 ML NASAL.SPR INTRANASAL PRN (13:57)
[2024-03-27] MEDS: Senna TAB 8.6 mg TAB PO SCH (14:00)
[2024-03-27] MEDS: Multivitamins/Minerals TAB PO SCH (14:00)
[2024-03-27] MEDS ORDERED: Acetaminophen IV 1 GM/100ML 1,000 MG/100 ML BAG IV PRN (15:12)
[2024-03-27] MEDS: Morphine 2 MG/ML SYRINGE IV PRN ×2 (15:43→21:43)
[2024-03-27] MEDS: Lactated Ringers 1000 ml BAG 1,000 ML IV SCH (18:25)
[2024-03-27] MEDS: Enoxaparin 40 MG/0.4 ML SYR SUBCUT SCH (18:26)
[2024-03-28] MEDS: Haloperidol 5 mg/ml SDV IV/IM 5 MG/ML AMP IV SLOW PU ONE (02:40)
[2024-03-28 06:53] LABS: ABS Lymphocytes 1.2 10^3/uL (1.0-4.8); ABS Monocytes 0.9 10^3/uL (0.0-0.9); ABS Neutrophils 6.1 10^3/uL (1.5-7.6); Eosinophil % 0.1 %; Hematocrit 36.7 % (35-45); Hemoglobin 12.7 g/dL (11.5-14.3); Lymphocyte % 14.6 %; Mean Corpuscular Hemoglobin 32.5 pg (27-33); Mean Corpuscular Hgb Conc 34.5 g/dL (31-36); Mean Corpuscular Volume 94.2 fL (80-97); Mean Platelet Volume 8.9 fL (7.5-11.2); Platelet Count 202 10^3/uL (150-450); Red Cell Distribution Width 13.5 % (12-17); White Blood Count 8.3 10^3/uL (3.8-11.8)
[2024-03-28 07:26] LABS: Calcium 8.7 mg/dL (8.6-10.3); Creatinine, Serum 0.88 mg/dL (0.51-0.95); Potassium 3.7 mmol/L (3.5-5.0); eGFR CKD-EPI 64.8 (>60)
[2024-03-28] MEDS: Venlafaxine XR 75 mg PO SCH (12:04)
[2024-03-28] MEDS: Lactated Ringers 1000 ml BAG 1,000 ML IV SCH (12:46)
[2024-03-28] MEDS: CMC:Mirabegron 25 mg ER TAB (NF) PO SCH (17:01)
[2024-03-29 06:23] LABS: ABS Eosinophils 0.1 10^3/uL (0.0-0.5); ABS Lymphocytes 1.3 10^3/uL (1.0-4.8); ABS Monocytes 0.8 10^3/uL (0.0-0.9); ABS Neutrophils 5.9 10^3/uL (1.5-7.6); ABS Nucleated RBC 0.01 10^3/ul; Eosinophil % 1.2 %; Hematocrit 34.3 % (35-45); Hemoglobin 11.7 g/dL (11.5-14.3); Lymphocyte % 15.9 %; Mean Corpuscular Hemoglobin 32.3 pg (27-33); Mean Platelet Volume 9.2 fL (7.5-11.2); Nucleated Red Blood Cells % 0.1 %/100WBC (0.0-0.8); Platelet Count 188 10^3/uL (150-450); Red Blood Count 3.61 10^6/uL (3.63-4.92); Red Cell Distribution Width 14.2 % (12-17)
[2024-03-29 06:40] LABS: Calcium 8.5 mg/dL (8.6-10.3); Creatinine, Serum 0.84 mg/dL (0.51-0.95); Magnesium 1.7 mg/dL (1.9-2.7); Potassium 3.1 mmol/L (3.5-5.0); eGFR CKD-EPI 68.5 (>60)
[2024-03-29] MEDS: KCL 20 MEQ/100 ML IVPREMIX 20 MEQ/100 ML BAG IV SCH (09:18)
[2024-03-29] MEDS ORDERED: Acetaminophen IV 1 GM/100ML 1,000 MG/100 ML BAG IV PRN (09:48)
[2024-03-29] MEDS: Potassium Chloride LIQUID 20 MEQ/15 ML LIQUID PO ONE (09:51)
[2024-03-29] MEDS: D5NS 0.9% 1000 ml BAG 1,000 ML IV SCH (11:54)
[2024-03-29] MEDS: Acetaminophen IV 1 GM/100ML 1,000 MG/100 ML BAG IV PRN (11:55)
[2024-03-29] MEDS: Magnesium Sulfate 2 gm BAG 2 GM/50 ML BAG IVPB ONE (12:34)
[2024-03-29] MEDS: Magnesium Sulfate IV 1GM/100ML 1 GM/100 ML BAG IV ONE (13:42)
[2024-03-29 17:09] LABS: Urine Appearance Turbid; Urine Bilirubin Negative (Negative); Urine Blood 3+ (Negative); Urine Color Light-Yellow; Urine Glucose Negative (Negative); Urine Ketones 1+ (Negative); Urine Nitrite Negative (Negative); Urine Protein 1+ (>=30 mg/dL) (Negative); Urine Specific Gravity 1.012 (1.002-1.030); Urine Urobilinogen Negative (Negative)
[2024-03-29 17:12] LABS: Urine Bacteria 1+ /HPF (Absent); Urine Red Blood Cell 3+(>10/hpf) /HPF (0-Trace); Urine Squamous Epithelial Cell Present /HPF (Absent); Urine White Blood Cell 3+(>20/hpf) /HPF (0-Trace)
[2024-03-30 10:04] LABS: ABS Lymphocytes 0.5 10^3/uL (1.0-4.8); ABS Monocytes 0.5 10^3/uL (0.0-0.9); ABS Neutrophils 6.6 10^3/uL (1.5-7.6); Eosinophil % 0.1 %; Hematocrit 32.1 % (35-45); Hemoglobin 11.1 g/dL (11.5-14.3); Mean Corpuscular Hemoglobin 32.4 pg (27-33); Mean Corpuscular Hgb Conc 34.5 g/dL (31-36); Mean Platelet Volume 9.2 fL (7.5-11.2); Platelet Count 171 10^3/uL (150-450); Red Blood Count 3.41 10^6/uL (3.63-4.92); Red Cell Distribution Width 13.6 % (12-17); White Blood Count 7.7 10^3/uL (3.8-11.8)
[2024-03-30 10:20] LABS: Albumin 3.1 g/dL (3.5-5.7); Albumin/Globulin Ratio 1.5 (1-3); Calcium 7.8 mg/dL (8.6-10.3); Creatinine, Serum 0.82 mg/dL (0.51-0.95); Globulin 2.1 g/dL (2-4); Magnesium 1.7 mg/dL (1.9-2.7); Total Bilirubin 0.6 mg/dL (0.2-1.0); Total Protein 5.2 g/dL (6.4-8.9); eGFR CKD-EPI 70.5 (>60)
[2024-03-30] MEDS: Magnesium Sulfate 2 gm BAG 2 GM/50 ML BAG IVPB ONE (10:37)
[2024-03-30] MEDS: Remdesivir 100 mg Vial 200 MG in NS 0.9% 250 ml 210 ML IV ONE (11:35)
[2024-03-30 12:08] LABS: INR 1.18 (0.85-1.14)
[2024-03-30 21:15] LABS: Albumin 3.3 g/dL (3.5-5.7); Albumin/Globulin Ratio 1.5 (1-3); Calcium 8.3 mg/dL (8.6-10.3); Creatinine, Serum 0.85 mg/dL (0.51-0.95); Globulin 2.2 g/dL (2-4); Potassium 3.1 mmol/L (3.5-5.0); Total Bilirubin 0.7 mg/dL (0.2-1.0); Total Protein 5.5 g/dL (6.4-8.9); eGFR CKD-EPI 67.5 (>60)
[2024-03-31] MEDS: oxyCODONE/Acetamin 5/325 mg TAB PO PRN (00:53)
[2024-03-31 06:57] LABS: ABS Lymphocytes 0.9 10^3/uL (1.0-4.8); ABS Monocytes 0.9 10^3/uL (0.0-0.9); ABS Neutrophils 8.7 10^3/uL (1.5-7.6); Hematocrit 34.5 % (35-45); Lymphocyte % 8.5 %; Mean Corpuscular Hgb Conc 34.8 g/dL (31-36); Mean Corpuscular Volume 94.8 fL (80-97); Mean Platelet Volume 9.6 fL (7.5-11.2); Platelet Count 167 10^3/uL (150-450); Red Blood Count 3.64 10^6/uL (3.63-4.92); Red Cell Distribution Width 13.7 % (12-17); White Blood Count 10.6 10^3/uL (3.8-11.8)
[2024-03-31 07:15] LABS: Albumin 3.2 g/dL (3.5-5.7); Albumin/Globulin Ratio 1.3 (1-3); Calcium 8.1 mg/dL (8.6-10.3); Creatinine, Serum 0.91 mg/dL (0.51-0.95); Globulin 2.4 g/dL (2-4); Magnesium 1.9 mg/dL (1.9-2.7); Potassium 2.9 mmol/L (3.5-5.0); Total Bilirubin 0.7 mg/dL (0.2-1.0); Total Protein 5.6 g/dL (6.4-8.9); eGFR CKD-EPI 62.2 (>60)
[2024-03-31 07:24] LABS: INR 1.36 (0.85-1.14)
[2024-03-31] MEDS: Remdesivir 100 mg Vial 100 MG in NS 0.9% 250 ml 230 ML IV SCH (09:05)
[2024-03-31] MEDS: Potassium Chloride LIQUID 20 MEQ/15 ML LIQUID PO ONE ×2 (09:05→13:43)
[2024-03-31] MEDS: KCL 20 MEQ/100 ML IVPREMIX 20 MEQ/100 ML BAG IV SCH (12:22)
[2024-03-31 13:25] VITALS: BP 139/82
== END 2024-03-31 15:45 | disposition home or self-care (01) | DRG 917 ==
LOC: ED 04:43 → EDHOLD 11:51 → MED 15:55
PROVIDERS: ADMIT Internal Medicine; ATTEND Internal Medicine

== ENCOUNTER 2024-04-02 12:55 | Inpatient (IN) ==
[2024-04-02 14:42] LABS: ABS Lymphocytes 0.7 10^3/uL (1.0-4.8); ABS Monocytes 0.9 10^3/uL (0.0-0.9); ABS Neutrophils 10.8 10^3/uL (1.5-7.6); Eosinophil % 0.2 %; Hemoglobin 11.3 g/dL (11.5-14.3); Lymphocyte % 5.4 %; Mean Corpuscular Hemoglobin 31.8 pg (27-33); Mean Corpuscular Hgb Conc 33.4 g/dL (31-36); Mean Corpuscular Volume 95.4 fL (80-97); Mean Platelet Volume 9.4 fL (7.5-11.2); Platelet Count 173 10^3/uL (150-450); Red Blood Count 3.56 10^6/uL (3.63-4.92); Red Cell Distribution Width 14.4 % (12-17); White Blood Count 12.5 10^3/uL (3.8-11.8)
[2024-04-02] MEDS: Lactated Ringers 1000 ml BAG 1,000 ML IV ONE ×2 (15:05→23:30)
[2024-04-02 15:07] LABS: High Sens Troponin Baseline 18 pg/mL (<15)
[2024-04-02 15:16] LABS: ALT 13 U/L (7-52); Albumin 3.1 g/dL (3.5-5.7); Albumin/Globulin Ratio 1.2 (1-3); Alkaline Phosphatase 91 U/L (35-149); Anion Gap 9 mmol/L (2-16); Blood Urea Nitrogen 33 mg/dL (6-24); CO2 Carbon Dioxide 25 mmol/L (22-32); Calcium 8.6 mg/dL (8.6-10.3); Chloride 99 mmol/L (101-111); Creatinine, Serum 1.84 mg/dL (0.51-0.95); Globulin 2.5 g/dL (2-4); Glucose 102 mg/dL (70-100); Magnesium 2.2 mg/dL (1.9-2.7); Sodium 133 mmol/L (135-145); Total Bilirubin 0.6 mg/dL (0.2-1.0); Total Protein 5.6 g/dL (6.4-8.9); eGFR CKD-EPI 26.7 (>60)
[2024-04-02 16:43] LABS: Urine Appearance Extra Turbid; Urine Bilirubin Negative (Negative); Urine Blood 2+ (Negative); Urine Color Yellow; Urine Glucose Negative (Negative); Urine Ketones Negative (Negative); Urine Nitrite Negative (Negative); Urine Protein 1+ (>=30 mg/dL) (Negative); Urine Specific Gravity 1.017 (1.002-1.030); Urine Urobilinogen Negative (Negative)
[2024-04-02 16:54] LABS: High Sensitivity Troponin 1 Hr 18 pg/mL (<15)
[2024-04-02 17:01] LABS: Urine Bacteria Absent /HPF (Absent); Urine Red Blood Cell 3+(>10/hpf) /HPF (0-Trace); Urine White Blood Cell 3+(>20/hpf) /HPF (0-Trace)
[2024-04-02] MEDS: cefTRIAXone 1 gm/50 mL D5W 1 GM/50 ML BAG IV ONE (17:39)
[2024-04-02] MEDS ORDERED: Ondansetron ODT 4 mg TAB 4 MG TAB SL PRN (17:57)
[2024-04-02] MEDS: Acetaminophen IV 1 GM/100ML 1,000 MG/100 ML BAG IV ONE (17:58)
[2024-04-02] MEDS ORDERED: Naloxone Nasal Spray 4 MG/0.1 ML NASAL.SPR INTRANASAL PRN (18:05)
[2024-04-02] MEDS ORDERED: Triamcinolone 0.025% OINT 15 GM TUBE TOPICAL PRN (18:26)
[2024-04-02] MEDS: Enoxaparin 30 MG/0.3 ML SYR SUBCUT SCH (23:29)
[2024-04-02] MEDS: Senna TAB 8.6 mg TAB PO SCH (23:29)
[2024-04-03 00:03] LABS: Calcium 7.7 mg/dL (8.6-10.3); Creatinine, Serum 1.71 mg/dL (0.51-0.95); Potassium 3.3 mmol/L (3.5-5.0); eGFR CKD-EPI 29.2 (>60)
[2024-04-03] MEDS: Polyethylene Glycol 3350 17 GM PACKET PO SCH (08:57)
[2024-04-03] MEDS: Potassium Chloride LIQUID 20 MEQ/15 ML LIQUID PO ONE (08:57)
[2024-04-03] MEDS: Venlafaxine XR 75 mg PO SCH (08:58)
[2024-04-03] MEDS: KCL 20 MEQ/100 ML IVPREMIX 20 MEQ/100 ML BAG IV SCH (08:58)
[2024-04-03] MEDS: Cholecalciferol (VIT D3) 1,000 unit TAB PO SCH (08:58)
[2024-04-03] MEDS: cefTRIAXone 1 gm/50 mL D5W 1 GM/50 ML BAG IV SCH ×2 (09:01→11:30)
[2024-04-03] MEDS: CMCS:Mirabegron 25 mg ER TAB (NF) PO SCH (09:01)
[2024-04-03] MEDS ORDERED: oxyCODONE/Acetamin 10/325(NF) TAB PO PRN (14:58)
[2024-04-03] MEDS ORDERED: cefTRIAXone 1 gm/50 mL D5W 1 GM/50 ML BAG IV SCH (17:00)
[2024-04-04] MEDS: cefTRIAXone ADVAN VIAL 1 GM in NS 0.9% 50 ML 50 ML IV SCH (09:59)
[2024-04-04 11:50] LABS: ABS Lymphocytes 0.6 10^3/uL (1.0-4.8); ABS Monocytes 0.8 10^3/uL (0.0-0.9); ABS Neutrophils 5.6 10^3/uL (1.5-7.6); ABS Nucleated RBC 0.01 10^3/ul; Eosinophil % 0.4 %; Hematocrit 28.2 % (35-45); Hemoglobin 9.7 g/dL (11.5-14.3); Lymphocyte % 8.9 %; Mean Corpuscular Hemoglobin 32.6 pg (27-33); Mean Corpuscular Hgb Conc 34.6 g/dL (31-36); Mean Corpuscular Volume 94.4 fL (80-97); Mean Platelet Volume 8.6 fL (7.5-11.2); Nucleated Red Blood Cells % 0.1 %/100WBC (0.0-0.8); Platelet Count 183 10^3/uL (150-450); Red Blood Count 2.99 10^6/uL (3.63-4.92); Red Cell Distribution Width 14.1 % (12-17)
[2024-04-04 12:20] LABS: INR 1.31 (0.85-1.14)
[2024-04-04 12:23] LABS: Albumin 2.4 g/dL (3.5-5.7); Calcium 7.9 mg/dL (8.6-10.3); Creatinine, Serum 0.97 mg/dL (0.51-0.95); Globulin 2.3 g/dL (2-4); Magnesium 1.9 mg/dL (1.9-2.7); Phosphorus 2.3 mg/dL (2.5-5.0); Potassium 4.1 mmol/L (3.5-5.0); Total Bilirubin 0.5 mg/dL (0.2-1.0); Total Protein 4.7 g/dL (6.4-8.9); eGFR CKD-EPI 57.6 (>60)
[2024-04-04] MEDS: Potassium Phosphate IV 15 MMOL in NS 0.9% 250 ml 250 ML IVPB ONE (14:44)
[2024-04-04] MEDS: fentaNYL 250 mcg/5 ml 50 MCG/ML 5 ml VIAL (250 MCG) ONE (17:33)
[2024-04-04] MEDS: Lactated Ringers 1000 ml BAG 1,000 ML IV ONE (18:14)
[2024-04-05 07:01] LABS: Hemoglobin 10.3 g/dL (11.5-14.3); Mean Corpuscular Hemoglobin 32.7 pg (27-33); Mean Corpuscular Hgb Conc 34.5 g/dL (31-36); Mean Corpuscular Volume 94.8 fL (80-97); Mean Platelet Volume 8.1 fL (7.5-11.2); Platelet Count 172 10^3/uL (150-450); Red Blood Count 3.16 10^6/uL (3.63-4.92); Red Cell Distribution Width 13.9 % (12-17)
[2024-04-05 07:18] LABS: Calcium 7.7 mg/dL (8.6-10.3); Creatinine, Serum 0.86 mg/dL (0.51-0.95); Magnesium 1.8 mg/dL (1.9-2.7); Potassium 4.1 mmol/L (3.5-5.0); eGFR CKD-EPI 66.6 (>60)
[2024-04-05] MEDS: Acetaminophen IV 1 GM/100ML 1,000 MG/100 ML BAG IV PRN (17:55)
[2024-04-06 06:25] LABS: Hemoglobin 10.9 g/dL (11.5-14.3); Mean Corpuscular Hemoglobin 31.9 pg (27-33); Mean Corpuscular Hgb Conc 34.1 g/dL (31-36); Mean Corpuscular Volume 93.5 fL (80-97); Mean Platelet Volume 8.4 fL (7.5-11.2); Platelet Count 198 10^3/uL (150-450); Red Blood Count 3.42 10^6/uL (3.63-4.92); Red Cell Distribution Width 13.8 % (12-17); White Blood Count 7.6 10^3/uL (3.8-11.8)
[2024-04-06 07:01] LABS: Calcium 8.2 mg/dL (8.6-10.3); Creatinine, Serum 0.87 mg/dL (0.51-0.95); Magnesium 1.8 mg/dL (1.9-2.7); Potassium 3.9 mmol/L (3.5-5.0); eGFR CKD-EPI 65.7 (>60)
[2024-04-06] MEDS: Magnesium Sulfate 2 gm BAG 2 GM/50 ML BAG IVPB ONE (08:58)
[2024-04-06] MEDS ORDERED: Propofol 10 MG/ML 20 ML BTL ONE (14:09)
[2024-04-06] MEDS ORDERED: Ondansetron 4 mg VIAL 2 MG/ML 2 ml VIAL ONE (14:09)
[2024-04-06] MEDS ORDERED: fentaNYL 100 mcg/2 ml 50 MCG/ML VIAL ONE (14:09)
[2024-04-06] MEDS: oxyCODONE/Acetamin 5/325 mg TAB PO PRN (19:52)
[2024-04-07] MEDS: Amoxicillin/Clavul 875/125 TAB (Augmentin 875 tab) PO SCH (12:00)
[2024-04-08 09:30] LABS: Hematocrit 27.8 % (35-45); Hemoglobin 9.7 g/dL (11.5-14.3); Mean Corpuscular Hemoglobin 32.8 pg (27-33); Mean Corpuscular Hgb Conc 34.8 g/dL (31-36); Mean Corpuscular Volume 94.3 fL (80-97); Mean Platelet Volume 8.2 fL (7.5-11.2); Platelet Count 224 10^3/uL (150-450); Red Blood Count 2.94 10^6/uL (3.63-4.92); Red Cell Distribution Width 13.8 % (12-17); White Blood Count 7.5 10^3/uL (3.8-11.8)
[2024-04-08 10:34] VITALS: BP 134/65
[2024-04-08 10:40] LABS: Calcium 7.9 mg/dL (8.6-10.3); Creatinine, Serum 0.96 mg/dL (0.51-0.95); Potassium 3.9 mmol/L (3.5-5.0); eGFR CKD-EPI 58.3 (>60)
== END 2024-04-08 14:50 | disposition home or self-care (01) | DRG 853 ==
LOC: ED 12:55 → SUATTDRO 17:57 → EDHOLD 17:57 → MED 20:47
PROVIDERS: ADMIT Internal Medicine; ATTEND Internal Medicine